=== PATIENT | male | born 1960 | race Caucasian/White ===

== ENCOUNTER 2017-11-05 04:31 | Inpatient (IN) | payer OTHER ==
[2017-11-05] MEDS ORDERED: NS 1000 ML 1,000 ML ONE ×2 (04:50→06:22)
[2017-11-05] MEDS ORDERED: ZOFRAN INJ 4 MG VIAL ONE (04:51)
[2017-11-05] MEDS ORDERED: PEPCID 20 MG IV PREMIX* 20 MG/50 ML BAG IV ONE ×2 (05:07→05:11)
[2017-11-05] MEDS ORDERED: ZOFRAN INJ 4 MG VIAL IVP ONE ×2 (05:09)
[2017-11-05] MEDS ORDERED: NS 1000 ML 1,000 ML IV ONE ×2 (05:09)
--- NOTE | 2017-11-05 05:11 | DR.GENAD ---
HPI - PCP Primary Care Physician: myke - HPI Comment HPI Comment: PATIENT IS HAVING DECREASE URINE OUTPUT. NO FEVER. - Complaint/Symptoms Chief Complaint Doctors Comments: ABDOMINAL PAIN WITH NAUSEA AND DIARRHEA TIMES ONE DAY. Chief Complaint:: abdominal pain - Nurses notes reviewed Nurses Notes Review: Yes - Source History Provided: Patient - Mode of Arrival Mode of Arrival: Ambulatory - Timing Onset of Chief Complaint: 11/04/17 Came on: Suddenly - Duration Duration: Constant Duration: Days - Severity Severity: Moderate PMH - PMH Past Medical History: Yes Past Medical History: Arthritis, Diabetes, Gout, Hypertension, Kidney Stones Past Surgical History: Yes Surgical History: Ortho Surgery - Family History History of Family Medical Conditions: Yes Family Medical History: Diabetes Mellitus, Cancer, [place], Coronary Artery Disease, Hypertension - Social History Does patient currently use any type of tobacco product: No Have you used tobacco products in the last 12 months: No Type of Tobacco Use: None Does any household member use tobacco: No Alcohol Use: None Do you use any recreational Drugs:: No Lives With: Spouse Lives Where: Home - infectious screening In the last 2 months have you had wt loss of >10#?: NO Have you had fever, night sweats or hemotysis?: No Have you traveled outside the country in the last 6 months?: No Isolation: Standard ROS - Review of Systems Constitutional: Weakness, Fatigue, Loss of Appetite. negative: Chills, Diaphoresis, Fever Eyes: No Symptoms Reported. negative: Eye Pain, Discharge ENTM: No Symptoms Reported. negative: Ear Pain, Nose Discharge, Nose Congestion , Throat Swelling Respiratoy: Short of Breath. negative: Productive Cough, Non-Productive Cough, Wheezing, Hemoptysis Cardiovascular: No Symptoms Reported. negative: Chest Pain, Edema Gastrointestinal/Abdominal: Abdominal Pain, Diarrhea, Nausea Genitourinary: Other (DECREASE URINE OUTPUT.). negative: Dysuria, Frequency, Hematuria Neurological: Weakness, Dizziness Musculoskeletal: Muscle Pain Integumentary: Dryness (6) Hematologic/Lymphatic: No Symptoms Reported Endocrine: No Symptoms Reported All Other Systems: Reviewed and Negative PE - Vital Signs Vitals: Temperature 97.8 F Pulse Rate [Right Brachial] 100 Pulse Rate 122 Respiratory Rate 18 Blood Pressure [Right Arm] 129/77 Blood Pressure 115/75 O2 Sat by Pulse Oximetry 95 - General Limitations: No Limitations General Appearance: Alert - Head Head Exam: Normal Inspection - Eyes Eye exam: Normal Appearance - ENT ENT Exam: Normal External Ear Exam External Ear Exam: Normal External Inspection TM/Canal Exam: Bilateral Normal Nose Exam: Normal Nose Exam Mouth Exam: Normal Inspection Throat Exam: Normal Inspection - Neck Neck Exam: Trachea Midline. negative: Tenderness, Meningismus, Lymphadenopathy - Chest Chest Inspection: Symmetric Chest Wall Rise - Respiratory Respiratory Exam: Normal Lung Sounds Bilat Respiratory Exam: Bilateral Rhonchi, Left Rhonchi, Right Rhonchi, Lower Rhonchi - Cardiovascular Cardiovascular Exam: Regular Rate, Normal Rhythm, Normal Heart Sounds - Abdominal Exam Abdominal Exam: Normal Bowel Sounds, Soft, Tenderness Abdominal Tenderness: Diffuse, Moderate - Extremities Extremities Exam: Normal Inspection - Back Back Exam: Normal Inspection - Neurologic Neurological Exam: Alert, Oriented X3 - Psychiatric Psychiatric Exam: Anxious - Skin Skin Exam: Erythema MDM - Additional Information Additional Information Obtained From: Family - Differential Diagnosis Differential Diagnosis: ABDOMINAL PAIN, PANCREATITIS, BOWEL OBSTRUCTION, DEHYDRATION Course - Treatment Treatment: SEE ORDERS. - Consultation Consultation Comments: DISCUSS PATIENT WITH DR. HILL. HE WILL ADMIT PATIENT. - Education/Counseling Education/Counseling: Patient, Family, Education Educated On: Diagnosis ROR - Labs Reviewed Result Diagrams: 11/05/17 05:20 11/05/17 05:20 Laboratory: WBC 22.5 X10^3/uL (3.6-10.0) H 11/05/17 05:20 RBC 6.07 X10^6/uL (4.7-6.0) H 11/05/17 05:20 Hgb 18.1 g/dL (13.5-18.0) H 11/05/17 05:20 Hct 53.2 % (42.0-54.0) 11/05/17 05:20 MCV 87.7 fL (80.0-100.0) 11/05/17 05:20 MCH 29.8 pg (27.0-34.0) 11/05/17 05:20 MCHC 34.0 g/dL (33.0-35.0) 11/05/17 05:20 RDW 14.2 % (11.6-16.5) 11/05/17 05:20 Plt Count 276 X10^3/uL (150.0-450.0) 11/05/17 05:20 Plt Count Comment Adequate (ADEQUATE) 11/05/17 05:20 MPV 9.6 fL (7.4-11.0) 11/05/17 05:20 Neut % (Auto) 90.7 % (42.0-75.0) H 11/05/17 05:20 Lymph % (Auto) 3.5 % (21.0-51.0) L 11/05/17 05:20 [place] % (Auto) 5.6 % (0.0-13.0) 11/05/17 05:20 Eos % (Auto) 0.0 % (0.9-2.9) L 11/05/17 05:20 Baso % (Auto) 0.2 % (0.2-1.0) 11/05/17 05:20 Neut # (Auto) 20.4 x10^3/uL (2.2-4.8) H 11/05/17 05:20 Lymph # (Auto) 0.8 X10^3/uL (1.3-2.9) L 11/05/17 05:20 [place] # (Auto) 1.2 x10^3/uL (0.3-0.8) H 11/05/17 05:20 Eos # (Auto) 0.0 x10^3/uL (0.0-0.2) 11/05/17 05:20 Baso # (Auto) 0.0 X10^3/uL (0.0-0.1) 11/05/17 05:20 Absolute Nucleated RBC 0.0 /100WBC 11/05/17 05:20 Total Counted 100 11/05/17 05:20 Neutrophils % (Manual) 81 % (39-76) H 11/05/17 05:20 Band Neutrophils % 13 % (0-10) H 11/05/17 05:20 Lymphocytes % (Manual) 1 % (13-43) L 11/05/17 05:20 Monocytes % (Manual) 5 % (4-9) 11/05/17 05:20 Plt Morphology Comment Normal (NORMAL) 11/05/17 05:20 RBC Morphology Normal (NORMAL) 11/05/17 05:20 Sodium 137 mmol/L (136-145) 11/05/17 05:20 Corrected Sodium 139 mmol/L (136-145) 11/05/17 05:20 Potassium 4.1 mmol/L (3.5-5.1) 11/05/17 05:20 Chloride 100 mmol/L (98-107) 11/05/17 05:20 Carbon Dioxide 24.9 mmol/L (21-32) 11/05/17 05:20 BUN 39 mg/dL (7-18) H 11/05/17 05:20 Creatinine 1.87 mg/dL (0.70-1.30) H 11/05/17 05:20 Est GFR (MDRD) Af Amer 48 (>60) L 11/05/17 05:20 Est GFR (MDRD) Non-Af 40 (>60) L 11/05/17 05:20 Glucose 199 mg/dL (65-99) H 11/05/17 05:20 Calcium 8.2 mg/dL (8.5-10.1) L 11/05/17 05:20 Corrected Calcium TNP 11/05/17 05:20 Total Bilirubin 0.50 mg/dL (0.2-1.0) 11/05/17 05:20 AST 20 Units/L (15-37) 11/05/17 05:20 ALT 32 Units/L (12-78) 11/05/17 05:20 Alkaline Phosphatase 30 Units/L (46-116) L 11/05/17 05:20 Total Protein 7.1 g/dL (6.4-8.2) 11/05/17 05:20 Albumin 3.7 g/dL (3.4-5.0) 11/05/17 05:20 Globulin 3.4 g/dL (2.5-4.5) 11/05/17 05:20 Albumin/Globulin Ratio 1.1 Ratio (1.1-2.1) 11/05/17 05:20 Amylase 1455 Units/L (25-115) H 11/05/17 05:20 Lipase 8201 Units/L (73-393) H 11/05/17 05:20 - XRAY XRAY Interpreted by: Radiologist XRAY Findings: REPORT DISCUSS WITH PATIENT. - Diagnosis Discharge Problem: Dehydration, Bandemia Acute pancreatitis Qualifiers: Pancreatitis type: unspecified pancreatitis type Acute pancreatitis complication: unspecified Qualified Code(s): K85.90 - Acute pancreatitis without necrosis or infection, unspecified Abdominal pain Qualifiers: Abdominal location: generalized Qualified Code(s): R10.84 - Generalized abdominal pain Leukocytosis Qualifiers: Leukocytosis type: bandemia Qualified Code(s): D72.825 - Bandemia - Discharge Plan Disposition: 09 ADMITTED INPATIENT Condition: Stable - Follow ups/Referrals - Instructions
[2017-11-05 05:36] LABS: BASOPHILS % (AUTO) 0.2 % (0.2-1.0); HEMATOCRIT 53.2 % (42.0-54.0); HEMOGLOBIN 18.1 g/dL (13.5-18.0); LYMPHOCYTES # (AUTO) 0.8 X10^3/uL (1.3-2.9); LYMPHOCYTES % (AUTO) 3.5 % (21.0-51.0); MEAN CORPUSCULAR HEMOGLOBIN 29.8 pg (27.0-34.0); MEAN CORPUSCULAR VOLUME 87.7 fL (80.0-100.0); MEAN PLATELET VOLUME 9.6 fL (7.4-11.0); MONOCYTES # (AUTO) 1.2 x10^3/uL (0.3-0.8); MONOCYTES % (AUTO) 5.6 % (0.0-13.0); NEUTROPHILS # (AUTO) 20.4 x10^3/uL (2.2-4.8); NEUTROPHILS % (AUTO) 90.7 % (42.0-75.0); PLATELET COUNT 276 X10^3/uL (150.0-450.0); RED BLOOD COUNT 6.07 X10^6/uL (4.7-6.0); RED CELL DISTRIBUTION WIDTH 14.2 % (11.6-16.5); WHITE BLOOD COUNT 22.5 X10^3/uL (3.6-10.0)
[2017-11-05 05:39] LABS: ALANINE AMINOTRANSFERASE 32 Units/L (12-78); ALBUMIN 3.7 g/dL (3.4-5.0); ALKALINE PHOSPHATASE 30 Units/L (46-116); ASPARTATE AMINO TRANSFERASE 20 Units/L (15-37); BLOOD UREA NITROGEN 39 mg/dL (7-18); CALCIUM 8.2 mg/dL (8.5-10.1); CARBON DIOXIDE 24.9 mmol/L (21-32); CHLORIDE 100 mmol/L (98-107); COR NA(FOR HYPERGLY) 139 mmol/L (136-145); CREATININE 1.87 mg/dL (0.70-1.30); SODIUM 137 mmol/L (136-145); TOTAL PROTEIN 7.1 g/dL (6.4-8.2); eGFR BLACK RACES 48 (>60); eGFR NON BLACK RACES 40 (>60)
[2017-11-05 05:50] LABS: BAND NEUTROPHILS % 13 % (0-10); PLATELET MORPHOLOGY COMMENT NORMAL (NORMAL)
[2017-11-05 06:02] LABS: AMYLASE 1455 Units/L (25-115); LIPASE 8201 Units/L (73-393)
--- NOTE | 2017-11-05 06:02 | CT ---
HISTORY: Abdominal pain, nausea/vomiting/diarrhea. Patient is unable to urinate. Study: CT scan of the abdomen pelvis without IV or oral contrast Comparison: No priors Technique: Axial CT acquisition of the abdomen and pelvis was performed without IV or oral contrast m aterial administration. Coronal and sagittal images are also reviewed. Dose reduction techniques util ized automatic exposure control. Findings: There are very small bilateral pleural effusions. Bibasilar foci of atelectasis or infiltrate are pre sent. Left-sided coronary artery calcifications are present. A small amount of perihepatic and perisp lenic ascites is seen. There is ascitic fluid present within the pericolic gutters bilaterally as wel l as low within the true pelvis. The liver and spleen are normal in size. The gallbladder is unremark able. There is thickening of the pancreatic head with generalized peripancreatic fat reticulation and thickening of the para renal fascia regions bilaterally. A very small amount of fluid is present wit hin the retroperitoneal space adjacent to the the 2nd portion of the duodenum. Findings have the appe arance of active pancreatitis. Adrenal glands are normal. Multiple tiny nonobstructing kidney stones are present bilaterally. Atherosclerotic calcifications are present involving the yu of the abdomi nal aorta without aneurysm formation. Artifacts are present from surgical hardware involving the lowe r lumbar spine. No acute osseous changes are seen. The urinary bladder is well identified and is smal l. There is no evidence of bowel obstruction or perforation. Uncomplicated appearing sigmoid colon di verticulosis is present. No evidence of free intraperitoneal air seen. IMPRESSION: Active appearing pancreatitis with thickening of the pancreatic head and peripancreatic fat reticulat ion and edematous changes. No pancreatic mass or pseudocyst is seen. Small bilateral pleural effusions with bibasilar foci of atelectasis or infiltrate Abdominal ascites as noted above. Nonobstructing tiny bilateral kidney stones. No evidence of renal mass or hydronephrosis is seen. Small urinary bladder. Reported By:
[2017-11-05] MEDS ORDERED: PHENERGAN INJ 25 MG IVP ONE (08:08)
[2017-11-05] MEDS ORDERED: PHENERGAN INJ 25 MG IVP PRN (08:08)
[2017-11-05] MEDS ORDERED: PHENERGAN INJ 25 MG ONE (08:08)
[2017-11-05] MEDS ORDERED: MORPHINE SULFATE INJ 2 MG INJ IVP ONE (08:08)
[2017-11-05] MEDS ORDERED: MORPHINE SULFATE INJ 2 MG INJ IVP PRN (08:08)
[2017-11-05] MEDS ORDERED: ZOFRAN INJ 4 MG VIAL IVP PRN (08:08)
[2017-11-05] MEDS ORDERED: PEPCID 20 MG IV PREMIX* 20 MG/50 ML BAG IV PRN (08:08)
[2017-11-05] MEDS ORDERED: MORPHINE SULFATE INJ 2 MG INJ ONE ×2 (08:09→14:01)
[2017-11-05 09:10] LABS: LACTIC ACID 2.1 mmol/L (0.4-2.0)
[2017-11-05 10:00] VITALS: BMI 32.5
[2017-11-05] MEDS ORDERED: SALINE 3% 15 ML NEB TX ONE (13:27)
[2017-11-05] MEDS: NS 1000 ML 1,000 ML IV SCH ×2 (14:13→21:30)
[2017-11-05 14:24] LABS: BILIRUBIN,URINE NEGATIVE (NEGATIVE); BLOOD/HEMOGLOBIN,URINE 2+ (NEGATIVE); GLUCOSE, URINE NEGATIVE (NEGATIVE); KETONES,URINE 1+ (NEGATIVE); LEUKOCYTE ESTERASE ,URINE 1+ (NEGATIVE); NITRITES,URINE NEGATIVE (NEGATIVE); PROTEIN,URINE 2+ (NEGATIVE); UROBILINOGEN,URINE NORMAL (NORMAL)
[2017-11-05] MEDS ORDERED: DUONEB 0.5 MG/3 MG ONE (14:35)
[2017-11-05 14:39] LABS: AMORPHOUS SEDIMENT,UR 2+ /HPF (NEGATIVE); APPEARANCE,URINE HAZY (CLEAR); BACTERIA,URINE 2+ /HPF (NEGATIVE); COLOR,URINE DARK YELLOW (YELLOW); HYALINE CASTS, URINE FEW /LPF (NEGATIVE); SQUAMOUS EPITHELIAL CELL,UR RARE /HPF (NEGATIVE)
[2017-11-05] MEDS: DUONEB 0.5 MG/3 MG NEB SCH ×2 (17:30→21:45)
[2017-11-05] MEDS: DEMEROL INJ IVP PRN (20:21)
[2017-11-05] MEDS ORDERED: GLUCOPHAGE ONE (20:56)
[2017-11-05] MEDS ORDERED: NORVASC TAB 10 MG PO SCH (21:00)
[2017-11-05] MEDS ORDERED: TRICOR TAB 160 MG PO SCH (21:00)
[2017-11-05] MEDS: GLUCOPHAGE PO SCH (21:31)
--- NOTE | 2017-11-05 22:40 | US ---
Ultrasound gallbladder Indication: Abdominal pain and acute pancreatitis. Technique: Dynamic grayscale Doppler imaging through the abdomen focusing on the right upper quadrant . Findings: There is large gallstone seen at the gallbladder neck measuring 2.6 cm. The gallbladder is not particularly dilated in the wall is not thickened measuring 2-3 mm. The common bile duct measures 4 mm. The right kidney measures 11.1 cm. Impression: 1. Gallstone within the gallbladder, without specific evidence of acute cholecystitis. 2. Follow-up with HIDA scan if there is high suspicion for gallbladder dysfunction clinically. Reported By:
[2017-11-06] MEDS: DEMEROL INJ IVP PRN ×3 (00:18→12:20)
[2017-11-06] MEDS: DUONEB 0.5 MG/3 MG NEB SCH ×6 (00:59→21:26)
[2017-11-06] MEDS: NS 1000 ML 1,000 ML IV SCH ×2 (04:33→09:41)
[2017-11-06 07:17] LABS: CALCIUM 6.9 mg/dL (8.5-10.1); CARBON DIOXIDE 20.2 mmol/L (21-32); COR CA(FOR HYPOALB) 7.7 mg/dL (8.5-10.1); CREATININE 2.55 mg/dL (0.70-1.30); TOTAL PROTEIN 6.6 g/dL (6.4-8.2)
[2017-11-06 07:20] LABS: BASOPHILS # (AUTO) 0.1 X10^3/uL (0.0-0.1); BASOPHILS % (AUTO) 0.3 % (0.2-1.0); HEMATOCRIT 45.8 % (42.0-54.0); HEMOGLOBIN 15.8 g/dL (13.5-18.0); LYMPHOCYTES # (AUTO) 0.9 X10^3/uL (1.3-2.9); LYMPHOCYTES % (AUTO) 3.8 % (21.0-51.0); MEAN CORPUSCULAR HEMOGLOBIN 30.1 pg (27.0-34.0); MEAN CORPUSCULAR HGB CONC 34.4 g/dL (33.0-35.0); MEAN CORPUSCULAR VOLUME 87.4 fL (80.0-100.0); MEAN PLATELET VOLUME 9.9 fL (7.4-11.0); MONOCYTES # (AUTO) 1.8 x10^3/uL (0.3-0.8); MONOCYTES % (AUTO) 7.4 % (0.0-13.0); NEUTROPHILS # (AUTO) 21.1 x10^3/uL (2.2-4.8); NEUTROPHILS % (AUTO) 88.5 % (42.0-75.0); PLATELET COUNT 250 X10^3/uL (150.0-450.0); RED BLOOD COUNT 5.24 X10^6/uL (4.7-6.0); RED CELL DISTRIBUTION WIDTH 14.9 % (11.6-16.5); WHITE BLOOD COUNT 23.9 X10^3/uL (3.6-10.0)
[2017-11-06 07:49] LABS: BAND NEUTROPHILS % 9 % (0-10); PLATELET MORPHOLOGY COMMENT NORMAL (NORMAL)
[2017-11-06] MEDS ORDERED: GLUCOPHAGE ONE (07:49)
[2017-11-06] MEDS: GLUCOPHAGE PO SCH (08:34)
[2017-11-06] MEDS ORDERED: ZESTORETIC 20/25 MG PO SCH (09:00)
[2017-11-06] MEDS ORDERED: ZYLOPRIM PO SCH (09:00)
[2017-11-06] MEDS ORDERED: NS 1000 ML 1,000 ML IV ONE ×2 (11:19→22:03)
--- NOTE | 2017-11-06 11:47 | DR.H&P ---
H&P - History & Physical for Day of: H&P Date: 11/05/17 - Chief Complaint Chief Complaint: abdominal pain, nausea, diarrhea - Allergies Allergies/Adverse Reactions: Allergies Allergy/AdvReac Type Severity Reaction Status Date / Time piroxicam [From Feldene] Allergy Verified 11/05/17 04:40 - Past Medical History Past Medical History: Arthritis, Diabetes, Gout, Hypertension, Kidney Stones - Past Surgical History Surgical History: Ortho Surgery, Other - Family History Family Medical History: Diabetes Mellitus, Cancer, [place], Coronary Artery Disease, Hypertension - Social History Does patient currently use any type of tobacco product: No Have you used tobacco products in the last 12 months: No Type of Tobacco Use: None Does any household member use tobacco: No Alcohol Use: Occasionally Drug Use: None - Medications Home Medications: Allopurinol [ZYLOPRIM tab 100 mg *] 1 tab PO DAILY 11/05/17 [History Confirmed 11/05/17] Fenofibrate [TRICOR 160 MG *] 1 tab PO HS 11/05/17 [History Confirmed 11/05/17] Lisinopril/Hydrochlorothiazide [Lisinopril-Hctz 20-25 mg Tab] 1 tab PO DAILY [History Confirmed 11/05/17] - Review of Systems Constitutional: Weakness, Malaise, Other (loss of appetite ) Eyes: No Symptoms Reported ENT: No Symptoms Reported Respiratory: Shortness of Breath Cardiovascular: No Symptoms Reported, Light Headedness Gastrointestinal: See HPI, Nausea, Abdominal Pain, Diarrhea. denies: Constipation, Melena, Hematochezia Genitourinary: Other (decreased urine output ) Musculoskeletal: No Symptoms Reported Skin: No Symptoms Reported Neurological: Weakness - Physical Exam Vital Signs: Temperature 97.4 F Pulse Rate [Right Brachial] 113 Pulse Rate 105 Respiratory Rate 20 Blood Pressure [Right Arm] 127/82 Blood Pressure 115/75 O2 Sat by Pulse Oximetry 89 Oriented: Normal Eyes: Normal Ear: Normal Nose: Normal Throat: Normal Respiratory: Rhonchi Throughout Cardiovascular: Normal : Normal Auscultation: Bowel Sounds: Normal Palpation: Normal Tenderness: Diffuse, Moderate. negative: Rebound, Guarding, Rigidity Skin: Normal Musculoskeletal: Normal Psychiatric: Normal Mood Description: Calm Affect: Normal Speech Pattern: Clear - Assessment/Plan (1) Acute pancreatitis Qualifiers: Pancreatitis type: unspecified pancreatitis type Acute pancreatitis complication: unspecified Qualified Code(s): K85.90 - Acute pancreatitis without necrosis or infection, unspecified Status: Acute
[2017-11-06] MEDS ORDERED: NS 1000 ML 1,000 ML IV SCH (12:00)
[2017-11-06] MEDS ORDERED: CONSULT PHARMACY - ANTIBIOTIC XX SCH (12:00)
[2017-11-06] MEDS ORDERED: DUONEB 0.5 MG/3 MG ONE (12:24)
[2017-11-06 12:35] LABS: BILIRUBIN,URINE NEGATIVE (NEGATIVE); BLOOD/HEMOGLOBIN,URINE 3+ (NEGATIVE); GLUCOSE, URINE NEGATIVE (NEGATIVE); KETONES,URINE NEGATIVE (NEGATIVE); LEUKOCYTE ESTERASE ,URINE 1+ (NEGATIVE); NITRITES,URINE NEGATIVE (NEGATIVE); PROTEIN,URINE 2+ (NEGATIVE); UROBILINOGEN,URINE 2+ (NORMAL)
[2017-11-06 12:38] LABS: APPEARANCE,URINE HAZY (CLEAR); COLOR,URINE YELLOW (YELLOW)
[2017-11-06 12:43] LABS: BACTERIA,URINE NEGATIVE /HPF (NEGATIVE); MUCUS,URINE MODERATE /HPF (NEGATIVE); SQUAMOUS EPITHELIAL CELL,UR NEGATIVE /HPF (NEGATIVE)
[2017-11-06] MEDS ORDERED: LEVAQUIN PREMIX IV 500 MG 500 MG/100 ML BAG IV ONE (13:00)
[2017-11-06] MEDS ORDERED: NS 1000 ML 1,000 ML ONE (13:01)
--- NOTE | 2017-11-06 13:02 | RAD ---
HISTORY: Preop for gallbladder surgery. Study: Portable chest. Comparison: CT abdomen/pelvis dated November 05, 2017. Findings: The trachea is midline. The cardiac silhouette is unremarkable. Low lung volumes. Left basilar atel ectasis versus early infiltrate. No obvious pleural effusion or pneumothorax. The right lung is other younger clear. The bony thorax is unremarkable. IMPRESSION: Left basilar atelectasis versus early infiltrate. Reported By:
[2017-11-06] MEDS ORDERED: NS 1000 ML 1,000 ML with SODIUM BICARBONATE 8.4% INJ ADULT 50 ML IV SCH ×2 (14:18)
[2017-11-06] MEDS ORDERED: FORTAZ or TAZICEF INJ 1 GM in NS 100 ML IV + SPIKE MINIBAG* 100 ML IV SCH (15:00)
--- NOTE | 2017-11-06 15:04 | DR.CONSULT ---
Consult - Consultation for Day of: Date: 11/06/17 - Chief Complaint Chief Complaint: Acute cholecystitis. - Allergies Allergies/Adverse Reactions: Allergies Allergy/AdvReac Type Severity Reaction Status Date / Time piroxicam [From Feldene] Allergy Verified 11/05/17 04:40 - History of Present Illness History of Present Illness: The patient is a 57 year old male who presented to [facility] with abdominal pain. Work-up revealed pancreatitis. An ultrasound was obtained that showed a 2.6 cm gallstone in the gallbladder neck. Surgery was consulted for cholecystectomy. The patient is on antiplatelet therapy but is unsure of his last dose. - Past Medical History Past Medical History: Arthritis, Diabetes, Gout, Hypertension, Kidney Stones - Past Surgical History Surgical History: Ortho Surgery, Other (Lap Jairo fundoplication.) - Family History Family Medical History: Diabetes Mellitus, Cancer, [place], Coronary Artery Disease, Hypertension - Social History Does patient currently use any type of tobacco product: No Have you used tobacco products in the last 12 months: No Type of Tobacco Use: None Does any household member use tobacco: No Alcohol Use: Occasionally Drug Use: None - Medications Home Medications: Allopurinol [ZYLOPRIM tab 100 mg *] 1 tab PO DAILY 11/05/17 [History Confirmed 11/05/17] Fenofibrate [TRICOR 160 MG *] 1 tab PO HS 11/05/17 [History Confirmed 11/05/17] Lisinopril/Hydrochlorothiazide [Lisinopril-Hctz 20-25 mg Tab] 1 tab PO DAILY [History Confirmed 11/05/17] - Review of Systems Constitutional: Weakness Eyes: No Symptoms Reported ENT: No Symptoms Reported Respiratory: Shortness of Breath Cardiovascular: No Symptoms Reported Gastrointestinal: Abdominal Pain Genitourinary: Frequency Musculoskeletal: No Symptoms Reported Skin: No Symptoms Reported Neurological: No Symptoms Reported - Physical Exam Vital Signs: Temperature 99.0 F Pulse Rate [Right Brachial] 105 Pulse Rate 106 Respiratory Rate 22 Blood Pressure [Right Arm] 121/65 Blood Pressure 107/77 O2 Sat by Pulse Oximetry 93 Oriented: Normal Eyes: Normal Respiratory: RLL Diminished, LLL Diminished Cardiovascular: Tachycardia : Normal Palpation: Other (Distended) Tenderness: RUQ Skin: Normal Musculoskeletal: Normal Psychiatric: Normal Mood Description: Calm Affect: Normal Speech Pattern: Clear, Appropriate - Plan Plan: 57 yo male with acute pancreatitis. SIRS response. BUN/Cr elevated. Recommend resucitation in ICU with IVF. Start IV abx - renal dose. Closely monitor respiratory function. May need check bladder pressure if UOP does not improve with fluid challenge. Also, consider checking FENA. Will proceed with lap francisco as soon as feasible. Thank you for this consultation.
[2017-11-06 15:47] LABS: CREATININE 2.57 mg/dL (0.70-1.30)
[2017-11-06] MEDS ORDERED: DEMEROL INJ IVP PRN (17:57)
[2017-11-06] MEDS ORDERED: ZOFRAN INJ 4 MG VIAL IVP PRN (17:57)
[2017-11-06] MEDS ORDERED: PHENERGAN INJ 25 MG IVP PRN (17:57)
[2017-11-06] MEDS: PEPCID 20 MG IV PREMIX* 20 MG/50 ML BAG IV SCH (19:08)
[2017-11-06] MEDS: TRICOR TAB 48 MG PO SCH (20:54)
[2017-11-06] MEDS: NORVASC TAB 10 MG PO SCH (20:55)
[2017-11-06] MEDS ORDERED: TRICOR TAB 160 MG PO SCH (21:00)
[2017-11-06] MEDS: FORTAZ or TAZICEF INJ 1 GM in NS 100 ML IV + SPIKE MINIBAG* 100 ML IV SCH (21:20)
[2017-11-06 22:37] LABS: CREATININE 2.09 mg/dL (0.70-1.30)
[2017-11-06 22:46] LABS: CREATININE,URINE 126.05 mg/dL (40-278); SODIUM,URINE < 50 mmol/L (40-220)
[2017-11-07] MEDS: DUONEB 0.5 MG/3 MG NEB SCH ×2 (01:35→07:00)
[2017-11-07] MEDS: DEMEROL INJ IVP PRN ×3 (02:00→20:51)
[2017-11-07] MEDS: NS 1000 ML 1,000 ML with SODIUM BICARBONATE 8.4% INJ ADULT 50 ML IV SCH ×6 (03:20→15:07)
[2017-11-07 06:40] LABS: BASOPHILS % (AUTO) 0.1 % (0.2-1.0); EOSINOPHILS % (AUTO) 0.2 % (0.9-2.9); HEMATOCRIT 34.9 % (42.0-54.0); LYMPHOCYTES # (AUTO) 0.6 X10^3/uL (1.3-2.9); LYMPHOCYTES % (AUTO) 5.3 % (21.0-51.0); MEAN CORPUSCULAR HEMOGLOBIN 30.2 pg (27.0-34.0); MEAN CORPUSCULAR HGB CONC 34.5 g/dL (33.0-35.0); MEAN CORPUSCULAR VOLUME 87.5 fL (80.0-100.0); MEAN PLATELET VOLUME 9.4 fL (7.4-11.0); MONOCYTES # (AUTO) 1.2 x10^3/uL (0.3-0.8); MONOCYTES % (AUTO) 9.7 % (0.0-13.0); NEUTROPHILS # (AUTO) 10.1 x10^3/uL (2.2-4.8); NEUTROPHILS % (AUTO) 84.7 % (42.0-75.0); PLATELET COUNT 165 X10^3/uL (150.0-450.0); RED BLOOD COUNT 3.98 X10^6/uL (4.7-6.0); RED CELL DISTRIBUTION WIDTH 14.9 % (11.6-16.5)
[2017-11-07 06:57] LABS: ALANINE AMINOTRANSFERASE 21 Units/L (12-78); ALBUMIN 2.5 g/dL (3.4-5.0); ALKALINE PHOSPHATASE 30 Units/L (46-116); AMYLASE 337 Units/L (25-115); ASPARTATE AMINO TRANSFERASE 29 Units/L (15-37); BLOOD UREA NITROGEN 44 mg/dL (7-18); CALCIUM 6.3 mg/dL (8.5-10.1); CARBON DIOXIDE 23.9 mmol/L (21-32); CHLORIDE 102 mmol/L (98-107); COR CA(FOR HYPOALB) 7.5 mg/dL (8.5-10.1); CREATININE 1.66 mg/dL (0.70-1.30); LIPASE 575 Units/L (73-393); SODIUM 137 mmol/L (136-145); TOTAL PROTEIN 5.8 g/dL (6.4-8.2); eGFR BLACK RACES 55 (>60); eGFR NON BLACK RACES 46 (>60)
--- NOTE | 2017-11-07 07:09 | RAD ---
HISTORY: Shortness of breath Study: Single-view chest Comparison: 11/06/2017. Findings: Examination is very expiratory with accentuation of the transverse cardiac diameter and crowding of b ronchovascular markings. The trachea is midline. Left basilar atelectasis, infiltrate or scarring is again seen. Remainder of lung naranjo and pleural spaces are clear. Osseous structures are intact. IMPRESSION: Very expiratory chest. Linear focus of atelectasis, infiltrate or scarring in the left lung base is s table. Reported By:
[2017-11-07] MEDS ORDERED: LEVAQUIN PREMIX IV 250 MG 250 MG/50 ML BAG IV SCH (09:00)
[2017-11-07] MEDS: XOPENEX 1.25 MG/3 ML NEBULE NEB SCH ×4 (09:19→20:35)
[2017-11-07] MEDS: LEVAQUIN PREMIX IV 250 MG 250 MG/50 ML BAG IV SCH (09:59)
[2017-11-07] MEDS: ZESTORETIC 20/25 MG PO SCH (10:00)
[2017-11-07] MEDS: ZYLOPRIM PO SCH (10:00)
[2017-11-07] MEDS: PEPCID 20 MG IV PREMIX* 20 MG/50 ML BAG IV SCH (10:00)
[2017-11-07] MEDS ORDERED: DEMEROL INJ IVP PRN ×3 (13:36→16:00)
--- NOTE | 2017-11-07 19:37 | PCM.PROG ---
Progress Note - Progress Note for Day of Date: 11/06/17 - Subjective Subjective: WAS ADMITTED FOR ACUTE PANCREATITIS. TODAY, HE IS ALERT AND ORIENTED, LYING IN BED ON MORNING ROUNDS. HE CONTINUES WITH COMPLAINTS OF ABDOMINAL PAIN AND NAUSEA. ON EXAMINATION, HE IS SLIGHTLY TACHYCARDIC WITH HR NOTED TO BE 113. BILATERAL LUNGS ARE NOTED WITH RHONCHI THROUGHOUT. ABDOMEN IS ROUND, SOFT, AND NOTED WITH MODERATE, DIFFUSE TENDERNESS. NORMAL BOWEL SOUNDS ARE NOTED IN ALL QUADRANTS. THERE IS NORMAL RANGE OF MOTION NOTED TO ALL EXTREMITIES. HIS VITALS THIS MORNING ARE 97.4-113-20-99%-127/82. LABS WERE OBTAINED THIS MORNING. ABNORMAL LAB VALUES INCLUDE THE FOLLOWING: WBC 23.9, CARBON DIOXIDE 20.2, BUN 53, CREATININE 2.55, GLUCOSE 165, CALCIUM 6.9, ALK PHOS 30, ALBUMIN 3.0, AMYLASE 925, LIPASE 3088. SPUTUM CULTURE AND BLOOD CULTURES ARE PENDING. A CHEST XRAY WAS OBTAINED AND REVEALED LEFT BASILAR ATELECTASIS VERSUS EARLY INFILTRATE. WE OBTAINED A GALLBLADDER ULTRASOUND LAST NIGHT. IT REVEALED GALLSTONE WITHIN THE GALLBLADDER, WITHOUT SPECIFIC EVICENCE OF ACUTE CHOLECYSTITIS. TODAY, WE WILL CONSULT FOR POSSIBLE CHOLECYSTECTOMY. WE WILL START FORTAZ 1GM IV DAILY AND LEVAQUIN 250MG IV DAILY. WE WILL ALSO START RESPIRATORY TREATMENTS AND ADD 1 AMP BICARB TO EACH LITER OF IV FLUIDS. WE WILL CONTINUE TO HOLD PATIENTS PLAVIX. OTHERWISE, WE WILL CONTINUE WITH CURRENT PLAN OF CARE. WE PLAN TO FOLLOW UP WITH AM LABS AND CONTINUE TO MONTIOR PATIENT. - Past Medical Family Social History Past Med/Fam/Surg Hx: No changes since H&P Allergies: Allergies piroxicam [From Feldene] Allergy (Verified 11/05/17 04:40) - Review of Systems ROS: No change since H&P - Vital Signs and I&O's Vital Signs: Temperature 98.6 F Pulse Rate [Right Brachial] 108 Pulse Rate 90 Respiratory Rate 37 Blood Pressure [Right Arm] 128/76 Blood Pressure 107/77 O2 Sat by Pulse Oximetry 90 Intake and Output: Intake & Output 11/05/17 11/06/17 11/07/17 11/08/17 11:59 11:59 11:59 11:59 Intake Total 2928 6190 975 Output Total 400 2150 2000 Balance 2528 4040 -1025 - Physical Exam Oriented: Normal Eyes: Normal Ear: Normal Nose: Normal Throat: Normal Respiratory: Generalized, Rhonchi Cardiovascular: Tachycardia : Normal Auscultation: Bowel Sounds: Normal Palpation: Normal Tenderness: RUQ Skin: Normal Musculoskeletal: Normal Psychiatric: Normal Mood Description: Calm Affect: Normal Speech Pattern: Clear, Appropriate - Laboratory and Diagnostics Result Diagrams: 11/07/17 05:30 11/07/17 05:30 Labs: 11/05/17 13:30 Sputum - Expectorated Sputum Sputum Culture - Final 11/05/17 13:30 Sputum - Expectorated Sputum - Final 11/05/17 08:37 Blood Blood Culture - Preliminary 11/05/17 08:27 Blood Blood Culture - Preliminary Laboratory WBC 12.0 X10^3/uL (3.6-10.0) H D 11/07/17 05:30 RBC 3.98 X10^6/uL (4.7-6.0) L 11/07/17 05:30 Hgb 12.0 g/dL (13.5-18.0) L D 11/07/17 05:30 Hct 34.9 % (42.0-54.0) L 11/07/17 05:30 MCV 87.5 fL (80.0-100.0) 11/07/17 05:30 MCH 30.2 pg (27.0-34.0) 11/07/17 05:30 MCHC 34.5 g/dL (33.0-35.0) 11/07/17 05:30 RDW 14.9 % (11.6-16.5) 11/07/17 05:30 Plt Count 165 X10^3/uL (150.0-450.0) 11/07/17 05:30 Plt Count Comment Adequate (ADEQUATE) 11/06/17 06:03 MPV 9.4 fL (7.4-11.0) 11/07/17 05:30 Neut % (Auto) 84.7 % (42.0-75.0) H 11/07/17 05:30 Lymph % (Auto) 5.3 % (21.0-51.0) L 11/07/17 05:30 [place] % (Auto) 9.7 % (0.0-13.0) 11/07/17 05:30 Eos % (Auto) 0.2 % (0.9-2.9) L 11/07/17 05:30 Baso % (Auto) 0.1 % (0.2-1.0) L 11/07/17 05:30 Neut # (Auto) 10.1 x10^3/uL (2.2-4.8) H 11/07/17 05:30 Lymph # (Auto) 0.6 X10^3/uL (1.3-2.9) L 11/07/17 05:30 [place] # (Auto) 1.2 x10^3/uL (0.3-0.8) H 11/07/17 05:30 Eos # (Auto) 0.0 x10^3/uL (0.0-0.2) 11/07/17 05:30 Baso # (Auto) 0.0 X10^3/uL (0.0-0.1) 11/07/17 05:30 Absolute Nucleated RBC 0.0 /100WBC 11/07/17 05:30 Total Counted 100 11/06/17 06:03 Neutrophils % (Manual) 83 % (39-76) H 11/06/17 06:03 Band Neutrophils % 9 % (0-10) 11/06/17 06:03 Lymphocytes % (Manual) 3 % (13-43) L 11/06/17 06:03 Monocytes % (Manual) 5 % (4-9) 11/06/17 06:03 Plt Morphology Comment Normal (NORMAL) 11/06/17 06:03 RBC Morphology Normal (NORMAL) 11/06/17 06:03 Sodium 137 mmol/L (136-145) 11/07/17 05:30 Corrected Sodium TNP 11/07/17 05:30 Potassium 3.6 mmol/L (3.5-5.1) 11/07/17 05:30 Chloride 102 mmol/L (98-107) 11/07/17 05:30 Carbon Dioxide 23.9 mmol/L (21-32) 11/07/17 05:30 BUN 44 mg/dL (7-18) H 11/07/17 05:30 Creatinine 1.66 mg/dL (0.70-1.30) H 11/07/17 05:30 Est GFR (MDRD) Af Amer 55 (>60) L 11/07/17 05:30 Est GFR (MDRD) Non-Af 46 (>60) L 11/07/17 05:30 Glucose 109 mg/dL (65-99) H 11/07/17 05:30 POC Glucose (mg/dL) 98 mg/dL (65-99) 11/07/17 16:41 Lactic Acid 2.8 mmol/L (0.4-2.0) H 11/06/17 15:04 Calcium 6.3 mg/dL (8.5-10.1) L 11/07/17 05:30 Corrected Calcium 7.5 mg/dL (8.5-10.1) L 11/07/17 05:30 Total Bilirubin 0.70 mg/dL (0.2-1.0) 11/07/17 05:30 AST 29 Units/L (15-37) 11/07/17 05:30 ALT 21 Units/L (12-78) 11/07/17 05:30 Alkaline Phosphatase 30 Units/L (46-116) L 11/07/17 05:30 C-Reactive Protein 162.00 mg/L (0-3.0) H 11/05/17 08:27 Total Protein 5.8 g/dL (6.4-8.2) L 11/07/17 05:30 Albumin 2.5 g/dL (3.4-5.0) L 11/07/17 05:30 Globulin 3.3 g/dL (2.5-4.5) 11/07/17 05:30 Albumin/Globulin Ratio 0.8 Ratio (1.1-2.1) L 11/07/17 05:30 Triglycerides 118 mg/dL (0-150) 11/05/17 08:27 Cholesterol 133 mg/dL (0-200) 11/05/17 08:27 LDL Cholesterol, Calc 87 mg/dL (0-100) 11/05/17 08:27 HDL Cholesterol 22 mg/dL (40-60) L 11/05/17 08:27 Cholesterol/HDL Ratio 6.0 (0.0-5.0) H 11/05/17 08:27 Amylase 337 Units/L (25-115) H 11/07/17 05:30 Lipase 575 Units/L (73-393) H 11/07/17 05:30 Specimen Type Catherized urine 11/06/17 12:18 Urine Color Yellow (YELLOW) 11/06/17 12:18 Urine Appearance Hazy (CLEAR) 11/06/17 12:18 Urine pH 5.0 (5.0 - 8.0) 11/06/17 12:18 Ur Specific [place] 1.025 (1.000-1.030) 11/06/17 12:18 Urine Protein 2+ (NEGATIVE) 11/06/17 12:18 Urine Glucose (UA) Negative (NEGATIVE) 11/06/17 12:18 Urine Ketones Negative (NEGATIVE) 11/06/17 12:18 Urine Occult Blood 3+ (NEGATIVE) 11/06/17 12:18 Urine Nitrite Negative (NEGATIVE) 11/06/17 12:18 Urine Bilirubin Negative (NEGATIVE) 11/06/17 12:18 Urine Urobilinogen 2+ (NORMAL) 11/06/17 12:18 Ur Leukocyte Esterase 1+ (NEGATIVE) 11/06/17 12:18 Urine RBC 3-5 /HPF (NONE SEEN) 11/06/17 12:18 Urine WBC 3-5 /HPF (NONE SEEN) 11/06/17 12:18 Ur Squamous Epith Cells Negative /HPF (NEGATIVE) 11/06/17 12:18 Amorphous Sediment 2+ /HPF (NEGATIVE) 11/05/17 14:10 Urine Bacteria Negative /HPF (NEGATIVE) 11/06/17 12:18 Hyaline Casts Few /LPF (NEGATIVE) 11/05/17 14:10 Urine Mucus Moderate /HPF (NEGATIVE) 11/06/17 12:18 Ur Culture Indicated? No/not indicated 11/06/17 12:18 Ur Random Sodium < 50 mmol/L (40-220) 11/06/17 22:31 Urine Creatinine 126.05 mg/dL (40-278) 11/06/17 22:31 - Plan (1) Acute pancreatitis Status: Acute Qualifiers: Pancreatitis type: unspecified pancreatitis type Acute pancreatitis complication: unspecified Qualified Code(s): K85.90 - Acute pancreatitis without necrosis or infection, unspecified Plan: CONTINUE IV FLUIDS, LEVAQUIN 250MG IV DAILY, FORTAZ 1GM IV DAILY, DEMEROL FOR PAIN CONTROL, ZOFRAN AND PHENERGAN FOR NAUSEA (2) Cholelithiasis Status: Acute Qualifiers: Cholelithiasis location: gallbladder Cholecystitis presence: without cholecystitis Biliary obstruction: without biliary obstruction Qualified Code(s): K80.20 - Calculus of gallbladder without cholecystitis without obstruction Plan: CONSULT GENERAL SURGERY FOR POSSIBLE CHOLECYSTECTOMY (3) Bronchopneumonia Status: Acute Plan: LEVAQUIN IV, FORTAZ IV, RESPIRATORY TREATMENTS, CONTINUE TO MONITOR
[2017-11-07] MEDS: NORVASC TAB 10 MG PO SCH (20:50)
[2017-11-07] MEDS: TRICOR TAB 48 MG PO SCH (20:56)
[2017-11-07] MEDS: FORTAZ or TAZICEF INJ 1 GM in NS 100 ML IV + SPIKE MINIBAG* 100 ML IV SCH (22:15)
[2017-11-08] MEDS: DEMEROL INJ IVP PRN ×5 (01:30→19:15)
[2017-11-08] MEDS: NS 1000 ML 1,000 ML with SODIUM BICARBONATE 8.4% INJ ADULT 50 ML IV SCH ×4 (04:15→06:02)
[2017-11-08 05:27] LABS: BASOPHILS % (AUTO) 0.3 % (0.2-1.0); EOSINOPHILS # (AUTO) 0.1 x10^3/uL (0.0-0.2); EOSINOPHILS % (AUTO) 0.7 % (0.9-2.9); HEMATOCRIT 35.6 % (42.0-54.0); HEMOGLOBIN 12.1 g/dL (13.5-18.0); LYMPHOCYTES # (AUTO) 0.7 X10^3/uL (1.3-2.9); MEAN CORPUSCULAR HEMOGLOBIN 29.4 pg (27.0-34.0); MEAN CORPUSCULAR VOLUME 86.6 fL (80.0-100.0); MEAN PLATELET VOLUME 9.7 fL (7.4-11.0); MONOCYTES # (AUTO) 1.4 x10^3/uL (0.3-0.8); MONOCYTES % (AUTO) 11.2 % (0.0-13.0); NEUTROPHILS # (AUTO) 10.1 x10^3/uL (2.2-4.8); NEUTROPHILS % (AUTO) 81.8 % (42.0-75.0); PLATELET COUNT 207 X10^3/uL (150.0-450.0); RED BLOOD COUNT 4.11 X10^6/uL (4.7-6.0); RED CELL DISTRIBUTION WIDTH 14.2 % (11.6-16.5); WHITE BLOOD COUNT 12.4 X10^3/uL (3.6-10.0)
[2017-11-08 05:51] LABS: ALANINE AMINOTRANSFERASE 21 Units/L (12-78); ALBUMIN 2.6 g/dL (3.4-5.0); ALKALINE PHOSPHATASE 43 Units/L (46-116); AMYLASE 114 Units/L (25-115); ASPARTATE AMINO TRANSFERASE 26 Units/L (15-37); BLOOD UREA NITROGEN 21 mg/dL (7-18); CALCIUM 7.4 mg/dL (8.5-10.1); CHLORIDE 103 mmol/L (98-107); COR CA(FOR HYPOALB) 8.5 mg/dL (8.5-10.1); CREATININE 1.15 mg/dL (0.70-1.30); LIPASE 187 Units/L (73-393); SODIUM 139 mmol/L (136-145); TOTAL PROTEIN 6.7 g/dL (6.4-8.2); eGFR BLACK RACES > 60 (>60); eGFR NON BLACK RACES > 60 (>60)
--- NOTE | 2017-11-08 07:42 | RAD ---
HISTORY: Abdominal pain, pancreatitis Study: KUB Comparison: CT abdomen pelvis 11/05/2017 Findings: The abdominal gas pattern is nonspecific and nonobstructive. No abnormal masses or abnormal calcifica tions are identified. Postsurgical changes are present in the lower lumbar and upper sacral spine. IMPRESSION: Nonspecific, nonobstructive bowel gas pattern Reported By:
--- NOTE | 2017-11-08 07:43 | RAD ---
HISTORY: Shortness of breath Study: Single-view chest Comparison: 11/07/2017 Findings: The level of inspiratory effort is improved compared to the prior study, but the exam is still somewh at expiratory. This is seen to accentuate the transverse cardiac diameter and bronchovascular marking s. Right lung is clear. There is still some atelectasis or infiltrate present in the left lung base. No pleural fluid or pneumothorax is seen. Osseous structures are intact. The heart is probably slight ly enlarged IMPRESSION: Improved level of inspiratory effort. Probable cardiomegaly. Still some atelectasis or infiltrate present in the left lung base. Reported By:
[2017-11-08] MEDS: PEPCID 20 MG IV PREMIX* 20 MG/50 ML BAG IV SCH (08:32)
[2017-11-08] MEDS: LEVAQUIN PREMIX IV 250 MG 250 MG/50 ML BAG IV SCH (08:32)
[2017-11-08] MEDS: ZYLOPRIM PO SCH (08:32)
[2017-11-08] MEDS: ZESTORETIC 20/25 MG PO SCH (08:40)
[2017-11-08] MEDS: XOPENEX 1.25 MG/3 ML NEBULE NEB SCH ×4 (09:35→22:19)
[2017-11-08] MEDS ORDERED: NS 100 ML IV 100 ML IV ONE (13:11)
[2017-11-08] MEDS: D5 NS 1000 ML 1,000 ML IV SCH ×3 (14:30→21:12)
--- NOTE | 2017-11-08 14:35 | CT ---
CT OF THE ABDOMEN AND PELVIS WITH CONTRAST HISTORY: Abdominal pain with nausea vomiting. Abdominal station. Previous pancreatitis. Comparison: 3 days prior demonstrating acute pancreatitis. Technique: Multiple axial images of the abdomen and pelvis were obtained from the lung bases to the pubic symphy sis follow the administration of IV contrast as well as oral contrast. Dose reduction techniques inc luding Automated Exposure Control (AEC) and adjustment of mA and kV were utlized. Findings: The heart is normal in size. There is no pericardial effusion. Worsening of atelectasis at the left l serenity base with trace left pleural effusion. Liver and spleen are normal in size, enhancement characteristics and contour. No focal lesions. The p ortal vein is patent. No ductal dilitation. Gallbladder is present. No calcified gallstones or gallbl adder wall thickening. Again noted is significant peripancreatic inflammation and fluid which is slig htly increased when compared to prior. No definite focal regions of devascularization. Splenic vein a ppears patent. No pseudoaneurysm of the splenic artery. No walled-off fluid collections. Adrenal glan ds are normal. Kidneys enhance symmetrically without hydronephrosis or nephrolithiasis. Simple appea ring bilateral renal cysts. No bowel obstruction or inflammation. Diverticulosis without diverticulitis No abnormal appearing mes enteric or retroperitoneal lymph nodes. Small amount of free fluid in the presacral region. ; The bladder is normal in appearance. Prostate not enlarged. ; No aggressive osseous lesions. IMPRESSION: 1. Interval progression of pancreatitis without evidence of acute complication. 2. Worsening of atelectasis and small left pleural effusion involving the left lung base. Reported By:
[2017-11-08] MEDS ORDERED: LASIX IVP ONE (17:22)
[2017-11-08] MEDS: HEPARIN SODIUM INJ 5000 UNITS SC SCH (21:10)
[2017-11-08] MEDS: NORVASC TAB 10 MG PO SCH (21:10)
[2017-11-08] MEDS: TRICOR TAB 48 MG PO SCH (21:10)
[2017-11-08] MEDS: FORTAZ or TAZICEF INJ 1 GM in NS 100 ML IV + SPIKE MINIBAG* 100 ML IV SCH (21:11)
[2017-11-08] MEDS ORDERED: K-LYTE EFFERVESCENT PO PRN (23:01)
[2017-11-08] MEDS ORDERED: POTASSIUM CHLORIDE LIQ 20 MEQ UDC PO PRN (23:01)
[2017-11-08] MEDS ORDERED: POTASSIUM CHL 60 MEQ/NS 0.45% 500 ML IV PRN (23:01)
[2017-11-08] MEDS ORDERED: POTASSIUM CHL 40 MEQ/NS 0.45% 500 ML IV PRN (23:01)
[2017-11-08] MEDS ORDERED: K-RIDER 10 MEQ/NS 100 ML 10 MEQ/100 ML BAG IV PRN (23:01)
[2017-11-09] MEDS: DEMEROL INJ IVP PRN ×6 (00:07→21:58)
[2017-11-09] MEDS: HEPARIN SODIUM INJ 5000 UNITS SC SCH ×3 (05:13→21:08)
[2017-11-09] MEDS: D5 NS 1000 ML 1,000 ML IV SCH ×4 (05:14→21:07)
[2017-11-09 06:23] LABS: BASOPHILS % (AUTO) 0.4 % (0.2-1.0); EOSINOPHILS # (AUTO) 0.2 x10^3/uL (0.0-0.2); EOSINOPHILS % (AUTO) 1.4 % (0.9-2.9); HEMATOCRIT 33.2 % (42.0-54.0); HEMOGLOBIN 11.4 g/dL (13.5-18.0); LYMPHOCYTES # (AUTO) 0.8 X10^3/uL (1.3-2.9); LYMPHOCYTES % (AUTO) 5.7 % (21.0-51.0); MEAN CORPUSCULAR HEMOGLOBIN 29.4 pg (27.0-34.0); MEAN CORPUSCULAR HGB CONC 34.2 g/dL (33.0-35.0); MEAN PLATELET VOLUME 9.1 fL (7.4-11.0); MONOCYTES # (AUTO) 1.7 x10^3/uL (0.3-0.8); MONOCYTES % (AUTO) 12.8 % (0.0-13.0); NEUTROPHILS # (AUTO) 10.6 x10^3/uL (2.2-4.8); NEUTROPHILS % (AUTO) 79.7 % (42.0-75.0); PLATELET COUNT 218 X10^3/uL (150.0-450.0); RED BLOOD COUNT 3.86 X10^6/uL (4.7-6.0); RED CELL DISTRIBUTION WIDTH 14.5 % (11.6-16.5); WHITE BLOOD COUNT 13.3 X10^3/uL (3.6-10.0)
[2017-11-09 06:43] LABS: ALANINE AMINOTRANSFERASE 26 Units/L (12-78); ALBUMIN 2.2 g/dL (3.4-5.0); ALKALINE PHOSPHATASE 49 Units/L (46-116); AMYLASE 50 Units/L (25-115); ASPARTATE AMINO TRANSFERASE 26 Units/L (15-37); BLOOD UREA NITROGEN 13 mg/dL (7-18); CARBON DIOXIDE 26.3 mmol/L (21-32); CHLORIDE 102 mmol/L (98-107); COR CA(FOR HYPOALB) 9.4 mg/dL (8.5-10.1); COR NA(FOR HYPERGLY) 138 mmol/L (136-145); CREATININE 0.88 mg/dL (0.70-1.30); LIPASE 116 Units/L (73-393); MAGNESIUM 1.7 mg/dL (1.7-2.9); SODIUM 137 mmol/L (136-145); TOTAL PROTEIN 6.4 g/dL (6.4-8.2); eGFR BLACK RACES > 60 (>60); eGFR NON BLACK RACES > 60 (>60)
[2017-11-09 06:49] LABS: BAND NEUTROPHILS % 9 % (0-10); PLATELET MORPHOLOGY COMMENT NORMAL (NORMAL)
--- NOTE | 2017-11-09 07:19 | RAD ---
HISTORY: 57-year-old male with shortness of breath. Study: Frontal view of the chest. Comparison: Chest radiograph 11/08/2017 Findings: The trachea is midline. The cardiac silhouette is stably enlarged with low lung volumes. Unchanged left basilar atelectasis with likely trace effusion and no pneumothorax. Soft tissues are unremarkabl e. Osseous structures are unremarkable. IMPRESSION: 1. Unchanged left basilar atelectasis with likely trace effusion. Correlate clinically for underlyin g infectious process. Reported By:
[2017-11-09] MEDS: ZESTORETIC 20/25 MG PO SCH (08:22)
[2017-11-09] MEDS: PEPCID 20 MG IV PREMIX* 20 MG/50 ML BAG IV SCH (08:22)
[2017-11-09] MEDS: ZYLOPRIM PO SCH (08:22)
[2017-11-09] MEDS: LEVAQUIN PREMIX IV 250 MG 250 MG/50 ML BAG IV SCH (08:22)
[2017-11-09] MEDS: XOPENEX 1.25 MG/3 ML NEBULE NEB SCH ×4 (09:39→22:02)
[2017-11-09] MEDS ORDERED: POTASSIUM CHLORIDE LIQ 20 MEQ UDC PO PRN (19:00)
[2017-11-09] MEDS ORDERED: K-RIDER 10 MEQ/NS 100 ML 10 MEQ/100 ML BAG IV PRN (19:00)
[2017-11-09] MEDS ORDERED: POTASSIUM CHL 60 MEQ/NS 0.45% 500 ML IV PRN (19:00)
[2017-11-09] MEDS ORDERED: MAGNESIUM SULFATE 1 GM/100 mL PREMIX 1 GM/100 ML BAG IV PRN (19:00)
[2017-11-09] MEDS ORDERED: POTASSIUM CHL 40 MEQ/NS 0.45% 500 ML IV PRN (19:00)
[2017-11-09] MEDS ORDERED: K-LYTE EFFERVESCENT PO PRN (19:00)
[2017-11-09] MEDS ORDERED: TYLENOL 325 MG TAB PO PRN (20:24)
[2017-11-09] MEDS: MAGNESIUM SULFATE 1 GM/100 mL PREMIX 1 GM/100 ML BAG IV PRN ×2 (20:35→21:40)
[2017-11-09] MEDS: NORVASC TAB 10 MG PO SCH (21:07)
[2017-11-09] MEDS: MIRALAX POWDER (1 DOSE 17GM) PO SCH (21:07)
[2017-11-09] MEDS: TRICOR TAB 48 MG PO SCH (21:08)
[2017-11-09] MEDS: FORTAZ or TAZICEF INJ 1 GM in NS 100 ML IV + SPIKE MINIBAG* 100 ML IV SCH (21:08)
[2017-11-10] MEDS: DEMEROL INJ IVP PRN ×5 (02:35→22:55)
[2017-11-10] MEDS: D5 NS 1000 ML 1,000 ML IV SCH ×4 (03:11→21:50)
[2017-11-10 05:53] LABS: BASOPHILS % (AUTO) 0.3 % (0.2-1.0); EOSINOPHILS # (AUTO) 0.2 x10^3/uL (0.0-0.2); EOSINOPHILS % (AUTO) 1.3 % (0.9-2.9); HEMATOCRIT 34.5 % (42.0-54.0); HEMOGLOBIN 11.9 g/dL (13.5-18.0); LYMPHOCYTES % (AUTO) 6.8 % (21.0-51.0); MEAN CORPUSCULAR HEMOGLOBIN 29.6 pg (27.0-34.0); MEAN CORPUSCULAR HGB CONC 34.4 g/dL (33.0-35.0); MEAN CORPUSCULAR VOLUME 86.1 fL (80.0-100.0); MEAN PLATELET VOLUME 9.1 fL (7.4-11.0); MONOCYTES # (AUTO) 1.8 x10^3/uL (0.3-0.8); NEUTROPHILS # (AUTO) 12.2 x10^3/uL (2.2-4.8); NEUTROPHILS % (AUTO) 79.6 % (42.0-75.0); PLATELET COUNT 245 X10^3/uL (150.0-450.0); RED BLOOD COUNT 4.01 X10^6/uL (4.7-6.0); RED CELL DISTRIBUTION WIDTH 14.8 % (11.6-16.5); WHITE BLOOD COUNT 15.3 X10^3/uL (3.6-10.0)
[2017-11-10 06:04] LABS: ALANINE AMINOTRANSFERASE 47 Units/L (12-78); ALBUMIN 2.1 g/dL (3.4-5.0); ALKALINE PHOSPHATASE 78 Units/L (46-116); AMYLASE 45 Units/L (25-115); ASPARTATE AMINO TRANSFERASE 46 Units/L (15-37); BLOOD UREA NITROGEN 11 mg/dL (7-18); CALCIUM 8.1 mg/dL (8.5-10.1); CARBON DIOXIDE 28.7 mmol/L (21-32); CHLORIDE 100 mmol/L (98-107); COR CA(FOR HYPOALB) 9.6 mg/dL (8.5-10.1); COR NA(FOR HYPERGLY) 138 mmol/L (136-145); CREATININE 0.94 mg/dL (0.70-1.30); LIPASE 129 Units/L (73-393); MAGNESIUM 1.8 mg/dL (1.7-2.9); SODIUM 137 mmol/L (136-145); TOTAL PROTEIN 6.4 g/dL (6.4-8.2); eGFR BLACK RACES > 60 (>60); eGFR NON BLACK RACES > 60 (>60)
[2017-11-10] MEDS: HEPARIN SODIUM INJ 5000 UNITS SC SCH ×3 (06:20→21:50)
--- NOTE | 2017-11-10 07:37 | RAD ---
HISTORY: 57-year-old male with dehydration and leukocytosis. Study: Frontal view of the chest. Comparison: Chest radiograph 11/09/2017 Findings: The trachea is midline. The cardiac silhouette is stably enlarged with low lung volumes and left bas ilar airspace opacities superimposed upon prominent interstitium. No pneumothorax with likely trace left effusion. Soft tissues are unremarkable. Osseous structures are unremarkable. IMPRESSION: 1. Left basilar airspace opacities and likely trace effusion, correlate clinically for underlying in fectious process. Reported By:
[2017-11-10] MEDS: MIRALAX POWDER (1 DOSE 17GM) PO SCH ×3 (08:49→21:51)
[2017-11-10] MEDS: ZYLOPRIM PO SCH (08:49)
[2017-11-10] MEDS: LEVAQUIN PREMIX IV 250 MG 250 MG/50 ML BAG IV SCH (08:50)
[2017-11-10] MEDS: ZESTORETIC 20/25 MG PO SCH (08:50)
[2017-11-10] MEDS: PEPCID 20 MG IV PREMIX* 20 MG/50 ML BAG IV SCH (08:50)
[2017-11-10] MEDS: XOPENEX 1.25 MG/3 ML NEBULE NEB SCH ×4 (09:17→20:39)
--- NOTE | 2017-11-10 11:07 | PCM.PROG ---
Progress Note - Progress Note for Day of Date: 11/09/17 - Subjective Subjective: Feels better. Thirsty. Minimal ambulation. c/o abdominal distention. (-) BM. Takes Miralax for mild chronic constipation at home. - Past Medical Family Social History Past Med/Fam/Surg Hx: No changes since H&P Allergies: Allergies piroxicam [From Feldene] Allergy (Verified 11/05/17 04:40) - Review of Systems ROS: No change since H&P - Vital Signs and I&O's Vital Signs: Temperature 97 F Pulse Rate [Right Brachial] 102 Pulse Rate 80 Respiratory Rate 16 Blood Pressure [Right Arm] 138/75 Blood Pressure 107/77 O2 Sat by Pulse Oximetry 95 Intake and Output: Intake & Output 11/07/17 11/08/17 11/09/17 11/10/17 11:59 11:59 11:59 11:59 Intake Total 6190 2446 2641 3030 Output Total 2150 4100 5151 2850 Balance 4040 -8834 2517 180 - Physical Exam Oriented: Normal Eyes: Normal Ear: Normal Nose: Normal Throat: Normal Respiratory: Generalized, Rhonchi (Left base - Mild) Cardiovascular: Normal, Tachycardia : Normal Auscultation: Bowel Sounds: Normal, Decreased Palpation: Other (Distended. Tympanic.) Tenderness: RUQ, Epigastric Skin: Normal Musculoskeletal: Normal Psychiatric: Normal Mood Description: Calm Affect: Normal Speech Pattern: Clear, Appropriate - Laboratory and Diagnostics Result Diagrams: 11/10/17 04:35 11/10/17 04:35 Labs: 11/05/17 08:37 Blood Blood Culture - Final 11/05/17 08:27 Blood Blood Culture - Final 11/05/17 13:30 Sputum - Expectorated Sputum Sputum Culture - Final 11/05/17 13:30 Sputum - Expectorated Sputum - Final Laboratory WBC 15.3 X10^3/uL (3.6-10.0) H 11/10/17 04:35 RBC 4.01 X10^6/uL (4.7-6.0) L 11/10/17 04:35 Hgb 11.9 g/dL (13.5-18.0) L 11/10/17 04:35 Hct 34.5 % (42.0-54.0) L 11/10/17 04:35 MCV 86.1 fL (80.0-100.0) 11/10/17 04:35 MCH 29.6 pg (27.0-34.0) 11/10/17 04:35 MCHC 34.4 g/dL (33.0-35.0) 11/10/17 04:35 RDW 14.8 % (11.6-16.5) 11/10/17 04:35 Plt Count 245 X10^3/uL (150.0-450.0) 11/10/17 04:35 Plt Count Comment Adequate (ADEQUATE) 11/09/17 05:39 MPV 9.1 fL (7.4-11.0) 11/10/17 04:35 Neut % (Auto) 79.6 % (42.0-75.0) H 11/10/17 04:35 Lymph % (Auto) 6.8 % (21.0-51.0) L 11/10/17 04:35 [place] % (Auto) 12.0 % (0.0-13.0) 11/10/17 04:35 Eos % (Auto) 1.3 % (0.9-2.9) 11/10/17 04:35 Baso % (Auto) 0.3 % (0.2-1.0) 11/10/17 04:35 Neut # (Auto) 12.2 x10^3/uL (2.2-4.8) H 11/10/17 04:35 Lymph # (Auto) 1.0 X10^3/uL (1.3-2.9) L 11/10/17 04:35 [place] # (Auto) 1.8 x10^3/uL (0.3-0.8) H 11/10/17 04:35 Eos # (Auto) 0.2 x10^3/uL (0.0-0.2) 11/10/17 04:35 Baso # (Auto) 0.0 X10^3/uL (0.0-0.1) 11/10/17 04:35 Absolute Nucleated RBC 0.1 /100WBC 11/10/17 04:35 Total Counted 100 11/09/17 05:39 Neutrophils % (Manual) 64 % (39-76) 11/09/17 05:39 Band Neutrophils % 9 % (0-10) 11/09/17 05:39 Lymphocytes % (Manual) 12 % (13-43) L 11/09/17 05:39 Monocytes % (Manual) 13 % (4-9) H 11/09/17 05:39 Eosinophils % (Manual) 2 % (0-6) 11/09/17 05:39 Plt Morphology Comment Normal (NORMAL) 11/09/17 05:39 RBC Morphology Normal (NORMAL) 11/09/17 05:39 APTT 39.0 SECONDS (22.9-36.5) H 11/09/17 05:39 PTT Comment - 11/09/17 05:39 Sodium 137 mmol/L (136-145) 11/10/17 04:35 Corrected Sodium 138 mmol/L (136-145) 11/10/17 04:35 Potassium 3.0 mmol/L (3.5-5.1) L* 11/10/17 04:35 Chloride 100 mmol/L (98-107) 11/10/17 04:35 Carbon Dioxide 28.7 mmol/L (21-32) 11/10/17 04:35 BUN 11 mg/dL (7-18) 11/10/17 04:35 Creatinine 0.94 mg/dL (0.70-1.30) 11/10/17 04:35 Est GFR (MDRD) Af Amer > 60 (>60) 11/10/17 04:35 Est GFR (MDRD) Non-Af > 60 (>60) 11/10/17 04:35 Glucose 123 mg/dL (65-99) H 11/10/17 04:35 POC Glucose (mg/dL) 115 mg/dL (65-99) H 11/10/17 05:55 Lactic Acid 2.8 mmol/L (0.4-2.0) H 11/06/17 15:04 Calcium 8.1 mg/dL (8.5-10.1) L 11/10/17 04:35 Corrected Calcium 9.6 mg/dL (8.5-10.1) 11/10/17 04:35 Magnesium 1.8 mg/dL (1.7-2.9) 11/10/17 04:35 Total Bilirubin 1.40 mg/dL (0.2-1.0) H 11/10/17 04:35 AST 46 Units/L (15-37) H 11/10/17 04:35 ALT 47 Units/L (12-78) 11/10/17 04:35 Alkaline Phosphatase 78 Units/L (46-116) 11/10/17 04:35 C-Reactive Protein 162.00 mg/L (0-3.0) H 11/05/17 08:27 Total Protein 6.4 g/dL (6.4-8.2) 11/10/17 04:35 Albumin 2.1 g/dL (3.4-5.0) L 11/10/17 04:35 Globulin 4.3 g/dL (2.5-4.5) 11/10/17 04:35 Albumin/Globulin Ratio 0.5 Ratio (1.1-2.1) L 11/10/17 04:35 Triglycerides 118 mg/dL (0-150) 11/05/17 08:27 Cholesterol 133 mg/dL (0-200) 11/05/17 08:27 LDL Cholesterol, Calc 87 mg/dL (0-100) 11/05/17 08:27 HDL Cholesterol 22 mg/dL (40-60) L 11/05/17 08:27 Cholesterol/HDL Ratio 6.0 (0.0-5.0) H 11/05/17 08:27 Amylase 45 Units/L (25-115) 11/10/17 04:35 Lipase 129 Units/L (73-393) 11/10/17 04:35 Specimen Type Catherized urine 11/06/17 12:18 Urine Color Yellow (YELLOW) 11/06/17 12:18 Urine Appearance Hazy (CLEAR) 11/06/17 12:18 Urine pH 5.0 (5.0 - 8.0) 11/06/17 12:18 Ur Specific [place] 1.025 (1.000-1.030) 11/06/17 12:18 Urine Protein 2+ (NEGATIVE) 11/06/17 12:18 Urine Glucose (UA) Negative (NEGATIVE) 11/06/17 12:18 Urine Ketones Negative (NEGATIVE) 11/06/17 12:18 Urine Occult Blood 3+ (NEGATIVE) 11/06/17 12:18 Urine Nitrite Negative (NEGATIVE) 11/06/17 12:18 Urine Bilirubin Negative (NEGATIVE) 11/06/17 12:18 Urine Urobilinogen 2+ (NORMAL) 11/06/17 12:18 Ur Leukocyte Esterase 1+ (NEGATIVE) 11/06/17 12:18 Urine RBC 3-5 /HPF (NONE SEEN) 11/06/17 12:18 Urine WBC 3-5 /HPF (NONE SEEN) 11/06/17 12:18 Ur Squamous Epith Cells Negative /HPF (NEGATIVE) 11/06/17 12:18 Amorphous Sediment 2+ /HPF (NEGATIVE) 11/05/17 14:10 Urine Bacteria Negative /HPF (NEGATIVE) 11/06/17 12:18 Hyaline Casts Few /LPF (NEGATIVE) 11/05/17 14:10 Urine Mucus Moderate /HPF (NEGATIVE) 11/06/17 12:18 Ur Culture Indicated? No/not indicated 11/06/17 12:18 Ur Random Sodium < 50 mmol/L (40-220) 11/06/17 22:31 Urine Creatinine 126.05 mg/dL (40-278) 11/06/17 22:31 - Plan (1) Cholelithiasis Status: Acute Qualifiers: Cholelithiasis location: gallbladder Cholecystitis presence: with cholecystitis Cholecystitis acuity: acute Biliary obstruction: without biliary obstruction Qualified Code(s): K80.00 - Calculus of gallbladder with acute cholecystitis without obstruction Plan: Continue IV abx. Gallstone in neck of GB on imaging. (+) Willoughby's sign. Stone size alone meets criteria for cholecystectomy. Proceed with lap francisco Saturday. (2) Leukocytosis Status: Acute Qualifiers: Leukocytosis type: bandemia Qualified Code(s): D72.825 - Bandemia Narrative Support Text: Increasing WBC. Recent johnson. (+) Rhonchi. Recommend fever w/u. May need to repeat CT abd with IV contrast to r/o infected pancreatic necrosis. Await further w/u. Plan: Discuss with IM further w/u. Continue IV abx and monitor.
--- NOTE | 2017-11-10 11:15 | PCM.PROG ---
Progress Note - Progress Note for Day of Date: 11/10/17 - Subjective Subjective: Tolerating CL. Voiding with johnson removed. Minimal ambulation. (- ) BM but (+) flatus. Still c/o abdominal distention. - Past Medical Family Social History Past Med/Fam/Surg Hx: No changes since H&P Allergies: Allergies piroxicam [From Feldene] Allergy (Verified 11/05/17 04:40) - Review of Systems ROS: No change since H&P - Vital Signs and I&O's Vital Signs: Temperature 97 F Pulse Rate [Right Brachial] 102 Pulse Rate 80 Respiratory Rate 16 Blood Pressure [Right Arm] 138/75 Blood Pressure 107/77 O2 Sat by Pulse Oximetry 95 Intake and Output: Intake & Output 11/07/17 11/08/17 11/09/17 11/10/17 11:59 11:59 11:59 11:59 Intake Total 61 2446 2641 3030 Output Total 2150 4100 5151 2850 Balance 7020 -3711 -7163 180 - Physical Exam Oriented: Normal Eyes: Normal Ear: Normal Nose: Normal Throat: Normal Respiratory: Generalized, Diminished (Bases ) Cardiovascular: Normal : Normal Auscultation: Bowel Sounds: Decreased Palpation: Other (Distended. Tympanic.) Tenderness: RUQ, Epigastric Skin: Normal Musculoskeletal: Normal Psychiatric: Normal Mood Description: Calm Affect: Normal Speech Pattern: Clear, Appropriate - Laboratory and Diagnostics Result Diagrams: 11/10/17 04:35 11/10/17 04:35 Labs: 11/05/17 08:37 Blood Blood Culture - Final 11/05/17 08:27 Blood Blood Culture - Final 11/05/17 13:30 Sputum - Expectorated Sputum Sputum Culture - Final 11/05/17 13:30 Sputum - Expectorated Sputum - Final Laboratory WBC 15.3 X10^3/uL (3.6-10.0) H 11/10/17 04:35 RBC 4.01 X10^6/uL (4.7-6.0) L 11/10/17 04:35 Hgb 11.9 g/dL (13.5-18.0) L 11/10/17 04:35 Hct 34.5 % (42.0-54.0) L 11/10/17 04:35 MCV 86.1 fL (80.0-100.0) 11/10/17 04:35 MCH 29.6 pg (27.0-34.0) 11/10/17 04:35 MCHC 34.4 g/dL (33.0-35.0) 11/10/17 04:35 RDW 14.8 % (11.6-16.5) 11/10/17 04:35 Plt Count 245 X10^3/uL (150.0-450.0) 11/10/17 04:35 Plt Count Comment Adequate (ADEQUATE) 11/09/17 05:39 MPV 9.1 fL (7.4-11.0) 11/10/17 04:35 Neut % (Auto) 79.6 % (42.0-75.0) H 11/10/17 04:35 Lymph % (Auto) 6.8 % (21.0-51.0) L 11/10/17 04:35 [place] % (Auto) 12.0 % (0.0-13.0) 11/10/17 04:35 Eos % (Auto) 1.3 % (0.9-2.9) 11/10/17 04:35 Baso % (Auto) 0.3 % (0.2-1.0) 11/10/17 04:35 Neut # (Auto) 12.2 x10^3/uL (2.2-4.8) H 11/10/17 04:35 Lymph # (Auto) 1.0 X10^3/uL (1.3-2.9) L 11/10/17 04:35 [place] # (Auto) 1.8 x10^3/uL (0.3-0.8) H 11/10/17 04:35 Eos # (Auto) 0.2 x10^3/uL (0.0-0.2) 11/10/17 04:35 Baso # (Auto) 0.0 X10^3/uL (0.0-0.1) 11/10/17 04:35 Absolute Nucleated RBC 0.1 /100WBC 11/10/17 04:35 Total Counted 100 11/09/17 05:39 Neutrophils % (Manual) 64 % (39-76) 11/09/17 05:39 Band Neutrophils % 9 % (0-10) 11/09/17 05:39 Lymphocytes % (Manual) 12 % (13-43) L 11/09/17 05:39 Monocytes % (Manual) 13 % (4-9) H 11/09/17 05:39 Eosinophils % (Manual) 2 % (0-6) 11/09/17 05:39 Plt Morphology Comment Normal (NORMAL) 11/09/17 05:39 RBC Morphology Normal (NORMAL) 11/09/17 05:39 APTT 39.0 SECONDS (22.9-36.5) H 11/09/17 05:39 PTT Comment - 11/09/17 05:39 Sodium 137 mmol/L (136-145) 11/10/17 04:35 Corrected Sodium 138 mmol/L (136-145) 11/10/17 04:35 Potassium 3.0 mmol/L (3.5-5.1) L* 11/10/17 04:35 Chloride 100 mmol/L (98-107) 11/10/17 04:35 Carbon Dioxide 28.7 mmol/L (21-32) 11/10/17 04:35 BUN 11 mg/dL (7-18) 11/10/17 04:35 Creatinine 0.94 mg/dL (0.70-1.30) 11/10/17 04:35 Est GFR (MDRD) Af Amer > 60 (>60) 11/10/17 04:35 Est GFR (MDRD) Non-Af > 60 (>60) 11/10/17 04:35 Glucose 123 mg/dL (65-99) H 11/10/17 04:35 POC Glucose (mg/dL) 115 mg/dL (65-99) H 11/10/17 05:55 Lactic Acid 2.8 mmol/L (0.4-2.0) H 11/06/17 15:04 Calcium 8.1 mg/dL (8.5-10.1) L 11/10/17 04:35 Corrected Calcium 9.6 mg/dL (8.5-10.1) 11/10/17 04:35 Magnesium 1.8 mg/dL (1.7-2.9) 11/10/17 04:35 Total Bilirubin 1.40 mg/dL (0.2-1.0) H 11/10/17 04:35 AST 46 Units/L (15-37) H 11/10/17 04:35 ALT 47 Units/L (12-78) 11/10/17 04:35 Alkaline Phosphatase 78 Units/L (46-116) 11/10/17 04:35 C-Reactive Protein 162.00 mg/L (0-3.0) H 11/05/17 08:27 Total Protein 6.4 g/dL (6.4-8.2) 11/10/17 04:35 Albumin 2.1 g/dL (3.4-5.0) L 11/10/17 04:35 Globulin 4.3 g/dL (2.5-4.5) 11/10/17 04:35 Albumin/Globulin Ratio 0.5 Ratio (1.1-2.1) L 11/10/17 04:35 Triglycerides 118 mg/dL (0-150) 11/05/17 08:27 Cholesterol 133 mg/dL (0-200) 11/05/17 08:27 LDL Cholesterol, Calc 87 mg/dL (0-100) 11/05/17 08:27 HDL Cholesterol 22 mg/dL (40-60) L 11/05/17 08:27 Cholesterol/HDL Ratio 6.0 (0.0-5.0) H 11/05/17 08:27 Amylase 45 Units/L (25-115) 11/10/17 04:35 Lipase 129 Units/L (73-393) 11/10/17 04:35 Specimen Type Catherized urine 11/06/17 12:18 Urine Color Yellow (YELLOW) 11/06/17 12:18 Urine Appearance Hazy (CLEAR) 11/06/17 12:18 Urine pH 5.0 (5.0 - 8.0) 11/06/17 12:18 Ur Specific [place] 1.025 (1.000-1.030) 11/06/17 12:18 Urine Protein 2+ (NEGATIVE) 11/06/17 12:18 Urine Glucose (UA) Negative (NEGATIVE) 11/06/17 12:18 Urine Ketones Negative (NEGATIVE) 11/06/17 12:18 Urine Occult Blood 3+ (NEGATIVE) 11/06/17 12:18 Urine Nitrite Negative (NEGATIVE) 11/06/17 12:18 Urine Bilirubin Negative (NEGATIVE) 11/06/17 12:18 Urine Urobilinogen 2+ (NORMAL) 11/06/17 12:18 Ur Leukocyte Esterase 1+ (NEGATIVE) 11/06/17 12:18 Urine RBC 3-5 /HPF (NONE SEEN) 11/06/17 12:18 Urine WBC 3-5 /HPF (NONE SEEN) 11/06/17 12:18 Ur Squamous Epith Cells Negative /HPF (NEGATIVE) 11/06/17 12:18 Amorphous Sediment 2+ /HPF (NEGATIVE) 11/05/17 14:10 Urine Bacteria Negative /HPF (NEGATIVE) 11/06/17 12:18 Hyaline Casts Few /LPF (NEGATIVE) 11/05/17 14:10 Urine Mucus Moderate /HPF (NEGATIVE) 11/06/17 12:18 Ur Culture Indicated? No/not indicated 11/06/17 12:18 Ur Random Sodium < 50 mmol/L (40-220) 11/06/17 22:31 Urine Creatinine 126.05 mg/dL (40-278) 11/06/17 22:31 - Plan (1) Cholelithiasis Status: Acute Qualifiers: Cholelithiasis location: gallbladder Cholecystitis presence: with cholecystitis Cholecystitis acuity: acute Biliary obstruction: without biliary obstruction Qualified Code(s): K80.00 - Calculus of gallbladder with acute cholecystitis without obstruction Plan: Continue IV abx. Proceed with lap francisco - early saturday. (2) Leukocytosis Status: Acute Qualifiers: Leukocytosis type: bandemia Qualified Code(s): D72.825 - Bandemia Plan: Await w/u. lap francisco tomorrow.
[2017-11-10] MEDS: TRICOR TAB 48 MG PO SCH (21:51)
[2017-11-10] MEDS: FORTAZ or TAZICEF INJ 1 GM in NS 100 ML IV + SPIKE MINIBAG* 100 ML IV SCH (21:51)
[2017-11-10] MEDS: NORVASC TAB 10 MG PO SCH (21:51)
[2017-11-11] MEDS: DEMEROL INJ IVP PRN ×4 (03:10→20:30)
[2017-11-11] MEDS: D5 NS 1000 ML 1,000 ML IV SCH ×3 (03:32→20:03)
[2017-11-11] MEDS: HEPARIN SODIUM INJ 5000 UNITS SC SCH ×3 (06:07→21:00)
[2017-11-11 06:24] LABS: BASOPHILS # (AUTO) 0.1 X10^3/uL (0.0-0.1); BASOPHILS % (AUTO) 0.3 % (0.2-1.0); EOSINOPHILS # (AUTO) 0.2 x10^3/uL (0.0-0.2); EOSINOPHILS % (AUTO) 1.2 % (0.9-2.9); HEMATOCRIT 34.2 % (42.0-54.0); HEMOGLOBIN 11.7 g/dL (13.5-18.0); LYMPHOCYTES # (AUTO) 1.1 X10^3/uL (1.3-2.9); LYMPHOCYTES % (AUTO) 5.8 % (21.0-51.0); MEAN CORPUSCULAR HEMOGLOBIN 29.2 pg (27.0-34.0); MEAN CORPUSCULAR HGB CONC 34.3 g/dL (33.0-35.0); MEAN PLATELET VOLUME 8.9 fL (7.4-11.0); MONOCYTES # (AUTO) 2.2 x10^3/uL (0.3-0.8); MONOCYTES % (AUTO) 11.2 % (0.0-13.0); NEUTROPHILS # (AUTO) 15.8 x10^3/uL (2.2-4.8); NEUTROPHILS % (AUTO) 81.5 % (42.0-75.0); PLATELET COUNT 254 X10^3/uL (150.0-450.0); RED BLOOD COUNT 4.03 X10^6/uL (4.7-6.0); WHITE BLOOD COUNT 19.3 X10^3/uL (3.6-10.0)
[2017-11-11 06:36] LABS: ALANINE AMINOTRANSFERASE 73 Units/L (12-78); ALBUMIN 1.9 g/dL (3.4-5.0); ALKALINE PHOSPHATASE 96 Units/L (46-116); AMYLASE 42 Units/L (25-115); ASPARTATE AMINO TRANSFERASE 52 Units/L (15-37); BLOOD UREA NITROGEN 8 mg/dL (7-18); CALCIUM 8.2 mg/dL (8.5-10.1); CARBON DIOXIDE 27.1 mmol/L (21-32); CHLORIDE 100 mmol/L (98-107); COR CA(FOR HYPOALB) 9.9 mg/dL (8.5-10.1); COR NA(FOR HYPERGLY) 138 mmol/L (136-145); CREATININE 0.82 mg/dL (0.70-1.30); LIPASE 134 Units/L (73-393); SODIUM 137 mmol/L (136-145); TOTAL PROTEIN 6.4 g/dL (6.4-8.2); eGFR BLACK RACES > 60 (>60); eGFR NON BLACK RACES > 60 (>60)
[2017-11-11 06:53] LABS: BAND NEUTROPHILS % 2 % (0-10); PLATELET MORPHOLOGY COMMENT NORMAL (NORMAL)
--- NOTE | 2017-11-11 07:17 | RAD ---
History: Shortness of breath, comparison 11/10/2017 Study: AP chest Findings: AP erect chest labeled 652 hours shows the cardiac silhouette to be enlarged. The pulmonary vasculature appears within normal limits. There is persistent linear opacity in the left base which may reflect atelectasis or pneumonia. This is stable. No discrete pleural effusion is seen on the AP view today. Impression: 1. Cardiomegaly without CHF. 2. Left basilar linear opacity, atelectasis versus pneumonia. The former is favored. Reported By:
[2017-11-11] MEDS: PEPCID 20 MG IV PREMIX* 20 MG/50 ML BAG IV SCH (08:23)
[2017-11-11] MEDS: LEVAQUIN PREMIX IV 250 MG 250 MG/50 ML BAG IV SCH (08:23)
[2017-11-11] MEDS: XOPENEX 1.25 MG/3 ML NEBULE NEB SCH ×4 (08:25→20:42)
[2017-11-11] MEDS: MIRALAX POWDER (1 DOSE 17GM) PO SCH ×3 (08:26→21:41)
[2017-11-11] MEDS: ZYLOPRIM PO SCH (08:28)
[2017-11-11] MEDS: ZESTORETIC 20/25 MG PO SCH (08:28)
[2017-11-11] MEDS ORDERED: NS 100 ML IV 100 ML IV ONE (08:39)
--- NOTE | 2017-11-11 12:25 | CT ---
History: Follow-up pancreatitis Study: CT abdomen pelvis with contrast Findings: [address] imaging is performed from above the diaphragms to below the pubic symphysis following the oral ingestion of dilute contrast and during the intravenous administration of an unsp ecified volume and concentration of iodinated contrast. Coronal and sagittal reformatted images are s ubmitted as well and comparison made to the study of 11/08/2017. Significant atelectasis/pneumonia in volving the left lower lobe is again demonstrated. There is an extensive inflammatory process surroun ding the entirety of the pancreas and extending to just below the left hemidiaphragm and extending ca udally in the left pericolic gutter and into the left anterior perinephric space. There is caudal ext ension to just below the duodenum as well on the right. This finding is basically unchanged. There ar e tiny bilateral renal calculi. Within the lower pole of the right kidney is a 2.4 cm hypodense lesio n as seen previously which measures 27 Hounsfield units and may have a slightly enhancing nodule post eriorly. A formal renal study following resolution of the pancreatic inflammatory process is recommen ded. Pedicular screws with posterior connecting rods with associated spray artifact extending from th e L3 through S1 levels bilaterally is demonstrated. Impression: Extensive pancreatitis without evidence of pancreatic necrosis is again demonstrated. Significant left lower lobe atelectasis/pneumonia as before. Complex cyst lower pole right kidney. Reported By:
[2017-11-11] MEDS: FORTAZ or TAZICEF INJ 1 GM in NS 100 ML IV + SPIKE MINIBAG* 100 ML IV SCH ×2 (13:42→21:00)
[2017-11-11] MEDS: MUCINEX DM PO SCH ×2 (13:42→21:00)
[2017-11-11] MEDS: TRICOR TAB 48 MG PO SCH (21:00)
[2017-11-11] MEDS: NORVASC TAB 10 MG PO SCH (21:00)
[2017-11-11 21:12] LABS: BILIRUBIN,URINE NEGATIVE (NEGATIVE); BLOOD/HEMOGLOBIN,URINE 2+ (NEGATIVE); GLUCOSE, URINE NEGATIVE (NEGATIVE); KETONES,URINE NEGATIVE (NEGATIVE); LEUKOCYTE ESTERASE ,URINE NEGATIVE (NEGATIVE); NITRITES,URINE NEGATIVE (NEGATIVE); PROTEIN,URINE NEGATIVE (NEGATIVE); UROBILINOGEN,URINE 1+ (NORMAL)
[2017-11-11 21:20] LABS: APPEARANCE,URINE CLEAR (CLEAR); BACTERIA,URINE 1+ /HPF (NEGATIVE); COLOR,URINE YELLOW (YELLOW); SQUAMOUS EPITHELIAL CELL,UR RARE /HPF (NEGATIVE)
[2017-11-12] MEDS: DEMEROL INJ IVP PRN ×4 (00:35→20:45)
[2017-11-12] MEDS: D5 NS 1000 ML 1,000 ML IV SCH ×3 (04:50→19:51)
[2017-11-12 05:27] LABS: BASOPHILS # (AUTO) 0.1 X10^3/uL (0.0-0.1); BASOPHILS % (AUTO) 0.3 % (0.2-1.0); EOSINOPHILS # (AUTO) 0.2 x10^3/uL (0.0-0.2); EOSINOPHILS % (AUTO) 1.2 % (0.9-2.9); HEMATOCRIT 34.8 % (42.0-54.0); LYMPHOCYTES # (AUTO) 1.2 X10^3/uL (1.3-2.9); LYMPHOCYTES % (AUTO) 5.7 % (21.0-51.0); MEAN CORPUSCULAR HEMOGLOBIN 29.3 pg (27.0-34.0); MEAN CORPUSCULAR HGB CONC 34.4 g/dL (33.0-35.0); MEAN CORPUSCULAR VOLUME 85.1 fL (80.0-100.0); MEAN PLATELET VOLUME 8.5 fL (7.4-11.0); MONOCYTES # (AUTO) 1.8 x10^3/uL (0.3-0.8); MONOCYTES % (AUTO) 8.7 % (0.0-13.0); NEUTROPHILS # (AUTO) 17.6 x10^3/uL (2.2-4.8); NEUTROPHILS % (AUTO) 84.1 % (42.0-75.0); PLATELET COUNT 248 X10^3/uL (150.0-450.0); RED BLOOD COUNT 4.09 X10^6/uL (4.7-6.0); RED CELL DISTRIBUTION WIDTH 14.9 % (11.6-16.5); WHITE BLOOD COUNT 20.9 X10^3/uL (3.6-10.0)
[2017-11-12 05:44] LABS: ALANINE AMINOTRANSFERASE 95 Units/L (12-78); ALBUMIN 1.9 g/dL (3.4-5.0); ALKALINE PHOSPHATASE 138 Units/L (46-116); ASPARTATE AMINO TRANSFERASE 66 Units/L (15-37); BLOOD UREA NITROGEN 10 mg/dL (7-18); CALCIUM 8.3 mg/dL (8.5-10.1); CARBON DIOXIDE 28.2 mmol/L (21-32); CHLORIDE 100 mmol/L (98-107); CHOL/HDL RATIO 11.3 (0.0-5.0); CHOLESTEROL 113 mg/dL (0-200); COR NA(FOR HYPERGLY) 137 mmol/L (136-145); HDL CHOLESTEROL 10 mg/dL (40-60); SODIUM 136 mmol/L (136-145); TOTAL PROTEIN 6.4 g/dL (6.4-8.2); TRIGLYCERIDES 239 mg/dL (0-150); eGFR BLACK RACES > 60 (>60); eGFR NON BLACK RACES > 60 (>60)
[2017-11-12] MEDS: FORTAZ or TAZICEF INJ 1 GM in NS 100 ML IV + SPIKE MINIBAG* 100 ML IV SCH ×3 (06:00→21:12)
[2017-11-12] MEDS: HEPARIN SODIUM INJ 5000 UNITS SC SCH ×3 (06:00→21:12)
--- NOTE | 2017-11-12 06:30 | RAD ---
HISTORY: Shortness of breath Study: Chest AP portable Comparison: 11/11/2017 Findings: The heart is enlarged. No congestive heart failure is noted. The lungs are hypo inflated but free of acute infiltrates. There is some subsegmental atelectasis in the left costophrenic angle. A small lef t pleural effusion may be present. The bony thorax is unremarkable. IMPRESSION: Mild cardiomegaly without congestive heart failure Subsegmental atelectasis left lung base Suspect small left pleural effusion Reported By:
[2017-11-12] MEDS ORDERED: PHARMACY CONSULT - TPN XX SCH (07:00)
[2017-11-12] MEDS ORDERED: DULCOLAX SUPPOSITORY 10 MG RECTAL ONE ×2 (08:15→10:00)
[2017-11-12] MEDS: ZYLOPRIM PO SCH (08:36)
[2017-11-12] MEDS: ZESTORETIC 20/25 MG PO SCH (08:36)
[2017-11-12] MEDS: MIRALAX POWDER (1 DOSE 17GM) PO SCH ×2 (08:38→20:05)
[2017-11-12] MEDS: PEPCID 20 MG IV PREMIX* 20 MG/50 ML BAG IV SCH (08:38)
[2017-11-12] MEDS: LEVAQUIN PREMIX IV 750 MG 750 MG/150 ML BAG IV SCH (08:38)
[2017-11-12] MEDS: MUCINEX DM PO SCH ×3 (08:44→21:11)
[2017-11-12] MEDS: K-DUR TAB 20 MEQ PO SCH (08:56)
[2017-11-12] MEDS: XOPENEX 1.25 MG/3 ML NEBULE NEB SCH ×4 (09:07→22:02)
[2017-11-12] MEDS: PROCALAMINE 3 % 1,000 ML IV SCH (09:51)
--- NOTE | 2017-11-12 12:54 | PCM.PROG ---
Progress Note - Progress Note for Day of Date: 11/07/17 - Subjective Subjective: IS BEING TREATED FOR ACUTE PANCREATITIS AND PNEUMONIA. TODAY, HE IS ALERT AND ORIENTED, LYING IN BED ON MORNING ROUNDS. HE CONTINUES WITH COMPLAINTS OF ABDOMINAL PAIN AND NAUSEA. HE ALSO REPORTS INCREASED SHORTNESS OF BREATH. ON EXAMINATION, HEART IS NORMAL IN RATE AND RHYTHM. BILATERAL LUNGS ARE NOTED WITH DIMINISHED LUNG SOUNDS THROUGHOUT. ABDOMEN IS ROUND, SOFT, AND CONTINUES WITH MODERATE, DIFFUSE TENDERNESS. NORMAL BOWEL SOUNDS ARE NOTED IN ALL QUADRANTS. THERE IS NORMAL RANGE OF MOTION NOTED TO ALL EXTREMITIES. HIS VITALS THIS MORNING ARE 98.6-89-22-92% NC-132/66. LABS WERE OBTAINED THIS MORNING. ABNORMAL LAB VALUES INCLUDE THE FOLLOWING: WBC 12.0, RBC 3.98, HGB 12.0, HCT 34.9, BUN 44, CREATININE 1.66, GLUCOSE 109, CALCIUM 6.3, ALK PHOS 30, TOTAL PROTEIN 5.8, ALBUMIN 2.5. BLOOD CULTURES AND SPUTUM CULTURES ARE PENDING. A CHEST XRAY WAS OBTAINED AND REVEALED LEFT BASILAR ATELECTASIS, INFILTRATE, OR SCARRING SEEN. WE OBTAINED A GALLBLADDER ULTRASOUND LAST NIGHT. IT REVEALED GALLSTONE WITHIN THE GALLBLADDER, WITHOUT SPECIFIC EVICENCE OF ACUTE CHOLECYSTITIS. WAS CONSULTED AND PLANS FOR CHOLECYSTECTOMY AFTER PLAVIX HAS BEEN HELD FOR 5 DAYS. TODAY, WE WILL CONTINUE WITH IV ANTIBIOTICS AND RESPIRATORY TREATMENTS WELL BICARB IN IV FLUIDS FOR TREATMENT OF ELEVATED BUN/CREATININE. WE WILL CONTINUE TO HOLD PATIENTS PLAVIX. OTHERWISE, WE WILL CONTINUE WITH CURRENT PLAN OF CARE AND OBTAIN A CT ABD/PELVIS WITHOUT CONTRAST IN THE MORNING. WE PLAN TO FOLLOW UP WITH AM LABS AND CONTINUE TO MONTIOR PATIENT. - Past Medical Family Social History Past Med/Fam/Surg Hx: No changes since H&P Allergies: Allergies piroxicam [From Feldene] Allergy (Verified 11/05/17 04:40) - Review of Systems ROS: No change since H&P - Vital Signs and I&O's Vital Signs: Temperature 96.6 F Pulse Rate [Right Brachial] 80 Pulse Rate 73 Respiratory Rate 14 Blood Pressure [Right Arm] 104/57 Blood Pressure 107/77 O2 Sat by Pulse Oximetry 95 Intake and Output: Intake & Output 11/10/17 11/11/17 11/12/17 11/13/17 11:59 11:59 11:59 11:59 Intake Total 3030 4345 4314 Output Total 2850 1900 Balance 180 2445 4314 - Physical Exam Oriented: Normal Eyes: Normal Ear: Normal Nose: Normal Throat: Normal Respiratory: Generalized, Diminished (Bases ) Cardiovascular: Tachycardia : Normal Auscultation: Bowel Sounds: Normal, Decreased Palpation: Normal Tenderness: RUQ. negative: Rebound, Guarding, Rigidity Skin: Normal Musculoskeletal: Normal Psychiatric: Normal Mood Description: Calm Affect: Normal Speech Pattern: Clear, Appropriate - Laboratory and Diagnostics Result Diagrams: 11/12/17 04:30 11/12/17 04:30 Labs: 11/11/17 21:08 Sputum - Expectorated Sputum - Final 11/09/17 21:55 Blood Blood Culture - Preliminary 11/09/17 21:40 Blood Blood Culture - Preliminary 11/05/17 08:37 Blood Blood Culture - Final 11/05/17 08:27 Blood Blood Culture - Final 11/05/17 13:30 Sputum - Expectorated Sputum Sputum Culture - Final 11/05/17 13:30 Sputum - Expectorated Sputum - Final Laboratory WBC 20.9 X10^3/uL (3.6-10.0) H 11/12/17 04:30 RBC 4.09 X10^6/uL (4.7-6.0) L 11/12/17 04:30 Hgb 12.0 g/dL (13.5-18.0) L 11/12/17 04:30 Hct 34.8 % (42.0-54.0) L 11/12/17 04:30 MCV 85.1 fL (80.0-100.0) 11/12/17 04:30 MCH 29.3 pg (27.0-34.0) 11/12/17 04:30 MCHC 34.4 g/dL (33.0-35.0) 11/12/17 04:30 RDW 14.9 % (11.6-16.5) 11/12/17 04:30 Plt Count 248 X10^3/uL (150.0-450.0) 11/12/17 04:30 Plt Count Comment Adequate (ADEQUATE) 11/11/17 05:30 MPV 8.5 fL (7.4-11.0) 11/12/17 04:30 Neut % (Auto) 84.1 % (42.0-75.0) H 11/12/17 04:30 Lymph % (Auto) 5.7 % (21.0-51.0) L 11/12/17 04:30 [place] % (Auto) 8.7 % (0.0-13.0) 11/12/17 04:30 Eos % (Auto) 1.2 % (0.9-2.9) 11/12/17 04:30 Baso % (Auto) 0.3 % (0.2-1.0) 11/12/17 04:30 Neut # (Auto) 17.6 x10^3/uL (2.2-4.8) H 11/12/17 04:30 Lymph # (Auto) 1.2 X10^3/uL (1.3-2.9) L 11/12/17 04:30 [place] # (Auto) 1.8 x10^3/uL (0.3-0.8) H 11/12/17 04:30 Eos # (Auto) 0.2 x10^3/uL (0.0-0.2) 11/12/17 04:30 Baso # (Auto) 0.1 X10^3/uL (0.0-0.1) 11/12/17 04:30 Absolute Nucleated RBC 0.0 /100WBC 11/12/17 04:30 Total Counted 100 11/11/17 05:30 Neutrophils % (Manual) 80 % (39-76) H 11/11/17 05:30 Band Neutrophils % 2 % (0-10) 11/11/17 05:30 Lymphocytes % (Manual) 6 % (13-43) L 11/11/17 05:30 Monocytes % (Manual) 11 % (4-9) H 11/11/17 05:30 Eosinophils % (Manual) 1 % (0-6) 11/11/17 05:30 Plt Morphology Comment Normal (NORMAL) 11/11/17 05:30 RBC Morphology Normal (NORMAL) 11/11/17 05:30 APTT 39.0 SECONDS (22.9-36.5) H 11/09/17 05:39 PTT Comment - 11/09/17 05:39 Sodium 136 mmol/L (136-145) 11/12/17 04:30 Corrected Sodium 137 mmol/L (136-145) 11/12/17 04:30 Potassium 3.4 mmol/L (3.5-5.1) L 11/12/17 04:30 Chloride 100 mmol/L (98-107) 11/12/17 04:30 Carbon Dioxide 28.2 mmol/L (21-32) 11/12/17 04:30 BUN 10 mg/dL (7-18) 11/12/17 04:30 Creatinine 0.90 mg/dL (0.70-1.30) 11/12/17 04:30 Est GFR (MDRD) Af Amer > 60 (>60) 11/12/17 04:30 Est GFR (MDRD) Non-Af > 60 (>60) 11/12/17 04:30 Glucose 124 mg/dL (65-99) H 11/12/17 04:30 POC Glucose (mg/dL) 109 mg/dL (65-99) H 11/12/17 11:15 Lactic Acid 2.8 mmol/L (0.4-2.0) H 11/06/17 15:04 Calcium 8.3 mg/dL (8.5-10.1) L 11/12/17 04:30 Corrected Calcium 10.0 mg/dL (8.5-10.1) 11/12/17 04:30 Magnesium 1.8 mg/dL (1.7-2.9) 11/10/17 04:35 Total Bilirubin 0.80 mg/dL (0.2-1.0) 11/12/17 04:30 AST 66 Units/L (15-37) H 11/12/17 04:30 ALT 95 Units/L (12-78) H 11/12/17 04:30 Alkaline Phosphatase 138 Units/L (46-116) H 11/12/17 04:30 C-Reactive Protein 162.00 mg/L (0-3.0) H 11/05/17 08:27 Total Protein 6.4 g/dL (6.4-8.2) 11/12/17 04:30 Albumin 1.9 g/dL (3.4-5.0) L 11/12/17 04:30 Globulin 4.5 g/dL (2.5-4.5) 11/12/17 04:30 Albumin/Globulin Ratio 0.4 Ratio (1.1-2.1) L 11/12/17 04:30 Triglycerides 239 mg/dL (0-150) H 11/12/17 04:30 Cholesterol 113 mg/dL (0-200) 11/12/17 04:30 LDL Cholesterol, Calc 55 mg/dL (0-100) 11/12/17 04:30 HDL Cholesterol 10 mg/dL (40-60) L 11/12/17 04:30 Cholesterol/HDL Ratio 11.3 (0.0-5.0) H 11/12/17 04:30 Amylase 42 Units/L (25-115) 11/11/17 05:30 Lipase 134 Units/L (73-393) 11/11/17 05:30 Specimen Type Clean catch urine 11/11/17 21:00 Urine Color Yellow (YELLOW) 11/11/17 21:00 Urine Appearance Clear (CLEAR) 11/11/17 21:00 Urine pH 7.0 (5.0 - 8.0) 11/11/17 21:00 Ur Specific [place] 1.010 (1.000-1.030) 11/11/17 21:00 Urine Protein Negative (NEGATIVE) 11/11/17 21:00 Urine Glucose (UA) Negative (NEGATIVE) 11/11/17 21:00 Urine Ketones Negative (NEGATIVE) 11/11/17 21:00 Urine Occult Blood 2+ (NEGATIVE) 11/11/17 21:00 Urine Nitrite Negative (NEGATIVE) 11/11/17 21:00 Urine Bilirubin Negative (NEGATIVE) 11/11/17 21:00 Urine Urobilinogen 1+ (NORMAL) 11/11/17 21:00 Ur Leukocyte Esterase Negative (NEGATIVE) 11/11/17 21:00 Urine RBC 3-5 /HPF (NONE SEEN) 11/11/17 21:00 Urine WBC 0-2 /HPF (NONE SEEN) 11/11/17 21:00 Ur Squamous Epith Cells Rare /HPF (NEGATIVE) 11/11/17 21:00 Amorphous Sediment 2+ /HPF (NEGATIVE) 11/05/17 14:10 Urine Bacteria 1+ /HPF (NEGATIVE) 11/11/17 21:00 Hyaline Casts Few /LPF (NEGATIVE) 11/05/17 14:10 Urine Mucus Moderate /HPF (NEGATIVE) 11/06/17 12:18 Ur Culture Indicated? No/not indicated 11/11/17 21:00 Ur Random Sodium < 50 mmol/L (40-220) 11/06/17 22:31 Urine Creatinine 126.05 mg/dL (40-278) 11/06/17 22:31 - Plan (1) Acute pancreatitis Status: Acute Qualifiers: Pancreatitis type: unspecified pancreatitis type Acute pancreatitis complication: unspecified Qualified Code(s): K85.90 - Acute pancreatitis without necrosis or infection, unspecified Plan: CONTINUE IV FLUIDS, LEVAQUIN 250MG IV DAILY, FORTAZ 1GM IV DAILY, DEMEROL FOR PAIN CONTROL, ZOFRAN AND PHENERGAN FOR NAUSEA (2) Cholelithiasis Status: Acute Qualifiers: Cholelithiasis location: gallbladder Cholecystitis presence: with cholecystitis Cholecystitis acuity: acute Biliary obstruction: without biliary obstruction Qualified Code(s): K80.00 - Calculus of gallbladder with acute cholecystitis without obstruction Plan: Continue IV abx. Proceed with lap francisco - early afternoon Saturday. (3) Bronchopneumonia Status: Acute Plan: LEVAQUIN IV, FORTAZ IV, RESPIRATORY TREATMENTS, CONTINUE TO MONITOR
[2017-11-12] MEDS ORDERED: NORCURON INJ 10 MG VIAL ONE (13:32)
[2017-11-12] MEDS ORDERED: SUPRANE IN ONE (13:32)
[2017-11-12] MEDS ORDERED: DIPRIVAN VIAL ONE (13:32)
[2017-11-12] MEDS ORDERED: VERSED ONE (13:32)
[2017-11-12] MEDS ORDERED: EPHEDRINE SULFATE INJ ONE (13:32)
[2017-11-12] MEDS ORDERED: NEOSTIGMINE INJ ONE (13:32)
[2017-11-12] MEDS ORDERED: LTA KIT LIDOCAINE 4% ONE (13:32)
[2017-11-12] MEDS ORDERED: NEO-SYNEPHRINE INJ ONE (13:32)
[2017-11-12] MEDS ORDERED: XYLOCAINE 2 % (PLAIN) ONE (13:32)
[2017-11-12] MEDS ORDERED: ROBINUL ONE (13:32)
[2017-11-12] MEDS ORDERED: QUELICIN (OR ANECTINE) ONE (13:32)
--- NOTE | 2017-11-12 14:00 | PCM.PROG ---
Progress Note - Progress Note for Day of Date: 11/08/17 - Subjective Subjective: IS BEING TREATED FOR ACUTE PANCREATITIS AND PNEUMONIA. TODAY, HE IS ALERT AND ORIENTED, LYING IN BED ON MORNING ROUNDS. HE CONTINUES WITH COMPLAINTS OF ABDOMINAL PAIN AND SHORTNESS OF BREATH. PATIENT STATES I FEEL LIKE I AM FEELING UP WITH FLUID. DO I NEED SOME LASIX? ON EXAMINATION, HEART IS NORMAL IN RATE AND RHYTHM. ABDOMEN IS ROUND, SOFT, AND CONTINUES WITH MODERATE, DIFFUSE TENDERNESS. NORMAL BOWEL SOUNDS ARE NOTED IN ALL QUADRANTS. THERE IS NORMAL RANGE OF MOTION NOTED TO ALL EXTREMITIES. HIS VITALS THIS MORNING ARE 97.7-87-21-94%NC-116/57. LABS WERE OBTAINED THIS MORNING. ABNORMAL LAB VALUES INCLUDE THE FOLLOWING: WBC 12.4, RBC 4.11, HGB 12.1, HCT 35.6, BUN 21 , CALCIUM 7.4, ALK PHOS 43, ALBUMIN 2.6. AMYALSE AND LIPASE ARE WITHIN NORMAL LIMITS. BLOOD CULTURES AND SPUTUM CULTURES ARE PENDING. A CHEST XRAY WAS OBTAINED AND REVEALED IMPROVED LEVEL OF INSPIRATORY EFFORT. PROBABLE CARDIOMEGALY, STILL SOME ATELECTASIS OR INFILTRATE PRESENT IN THE LEFT LUNG BASE. AN ABD/PELVIS CT WAS OBTAINED WITH CONTRAST THIS MORNING. IT REVEALED INTERVAL PROGRESSION OF PANCREATITIS WITHOUT EVIDENCE OF ACUTE COMPLICATION. WORSENING OF ATELECTASIS AND SMALL LEFT PLEURAL EFFUSION INVOLVING THE LEFT LUNG BASE. TODAY, WE WILL CONTINUE WITH IV ANTIBIOTICS AND RESPIRATORY TREATMENTS. HIS BLOOD GLUCOSE HAS REMAINED ON THE LOW SIDE OF NORMAL. WE WILL START D5NS AT 125ML/HR TODAY. WE WILL CONTINUE TO HOLD PATIENTS PLAVIX DUE TO PENDING SURGERY. OTHERWISE, WE WILL CONTINUE WITH CURRENT PLAN OF CARE. WE PLAN TO FOLLOW UP WITH AM LABS AND CONTINUE TO MONTIOR PATIENT. - Past Medical Family Social History Past Med/Fam/Surg Hx: No changes since H&P Allergies: Allergies piroxicam [From Feldene] Allergy (Verified 11/05/17 04:40) - Review of Systems ROS: No change since H&P - Vital Signs and I&O's Vital Signs: Temperature 96.6 F Pulse Rate [Right Brachial] 80 Pulse Rate 73 Respiratory Rate 16 Blood Pressure [Right Arm] 117/69 Blood Pressure 107/77 O2 Sat by Pulse Oximetry 95 Intake and Output: Intake & Output 04/01/18 04/02/18 04/03/18 04/04/18 11:59 11:59 11:59 11:59 Intake Total 3030 4345 4314 Output Total 2850 1900 Balance 180 2445 4314 - Physical Exam Oriented: Normal Eyes: Normal Ear: Normal Nose: Normal Throat: Normal Respiratory: Generalized, Diminished (Bases ) Cardiovascular: Tachycardia : Normal Auscultation: Bowel Sounds: Normal Palpation: Normal Tenderness: RUQ. negative: Rebound, Guarding, Rigidity Skin: Normal Musculoskeletal: Normal Psychiatric: Normal Mood Description: Calm Affect: Normal Speech Pattern: Clear, Appropriate - Laboratory and Diagnostics Result Diagrams: 11/12/17 04:30 11/12/17 04:30 Labs: 11/11/17 21:08 Sputum - Expectorated Sputum - Final 11/09/17 21:55 Blood Blood Culture - Preliminary 11/09/17 21:40 Blood Blood Culture - Preliminary 11/05/17 08:37 Blood Blood Culture - Final 11/05/17 08:27 Blood Blood Culture - Final 11/05/17 13:30 Sputum - Expectorated Sputum Sputum Culture - Final 11/05/17 13:30 Sputum - Expectorated Sputum - Final Laboratory WBC 20.9 X10^3/uL (3.6-10.0) H 11/12/17 04:30 RBC 4.09 X10^6/uL (4.7-6.0) L 11/12/17 04:30 Hgb 12.0 g/dL (13.5-18.0) L 11/12/17 04:30 Hct 34.8 % (42.0-54.0) L 11/12/17 04:30 MCV 85.1 fL (80.0-100.0) 11/12/17 04:30 MCH 29.3 pg (27.0-34.0) 11/12/17 04:30 MCHC 34.4 g/dL (33.0-35.0) 11/12/17 04:30 RDW 14.9 % (11.6-16.5) 11/12/17 04:30 Plt Count 248 X10^3/uL (150.0-450.0) 11/12/17 04:30 Plt Count Comment Adequate (ADEQUATE) 11/11/17 05:30 MPV 8.5 fL (7.4-11.0) 11/12/17 04:30 Neut % (Auto) 84.1 % (42.0-75.0) H 11/12/17 04:30 Lymph % (Auto) 5.7 % (21.0-51.0) L 11/12/17 04:30 [place] % (Auto) 8.7 % (0.0-13.0) 11/12/17 04:30 Eos % (Auto) 1.2 % (0.9-2.9) 11/12/17 04:30 Baso % (Auto) 0.3 % (0.2-1.0) 11/12/17 04:30 Neut # (Auto) 17.6 x10^3/uL (2.2-4.8) H 11/12/17 04:30 Lymph # (Auto) 1.2 X10^3/uL (1.3-2.9) L 11/12/17 04:30 [place] # (Auto) 1.8 x10^3/uL (0.3-0.8) H 11/12/17 04:30 Eos # (Auto) 0.2 x10^3/uL (0.0-0.2) 11/12/17 04:30 Baso # (Auto) 0.1 X10^3/uL (0.0-0.1) 11/12/17 04:30 Absolute Nucleated RBC 0.0 /100WBC 11/12/17 04:30 Total Counted 100 11/11/17 05:30 Neutrophils % (Manual) 80 % (39-76) H 11/11/17 05:30 Band Neutrophils % 2 % (0-10) 11/11/17 05:30 Lymphocytes % (Manual) 6 % (13-43) L 11/11/17 05:30 Monocytes % (Manual) 11 % (4-9) H 11/11/17 05:30 Eosinophils % (Manual) 1 % (0-6) 11/11/17 05:30 Plt Morphology Comment Normal (NORMAL) 11/11/17 05:30 RBC Morphology Normal (NORMAL) 11/11/17 05:30 APTT 39.0 SECONDS (22.9-36.5) H 11/09/17 05:39 PTT Comment - 11/09/17 05:39 Sodium 136 mmol/L (136-145) 11/12/17 04:30 Corrected Sodium 137 mmol/L (136-145) 11/12/17 04:30 Potassium 3.4 mmol/L (3.5-5.1) L 11/12/17 04:30 Chloride 100 mmol/L (98-107) 11/12/17 04:30 Carbon Dioxide 28.2 mmol/L (21-32) 11/12/17 04:30 BUN 10 mg/dL (7-18) 11/12/17 04:30 Creatinine 0.90 mg/dL (0.70-1.30) 11/12/17 04:30 Est GFR (MDRD) Af Amer > 60 (>60) 11/12/17 04:30 Est GFR (MDRD) Non-Af > 60 (>60) 11/12/17 04:30 Glucose 124 mg/dL (65-99) H 11/12/17 04:30 POC Glucose (mg/dL) 109 mg/dL (65-99) H 11/12/17 11:15 Lactic Acid 2.8 mmol/L (0.4-2.0) H 11/06/17 15:04 Calcium 8.3 mg/dL (8.5-10.1) L 11/12/17 04:30 Corrected Calcium 10.0 mg/dL (8.5-10.1) 11/12/17 04:30 Magnesium 1.8 mg/dL (1.7-2.9) 11/10/17 04:35 Total Bilirubin 0.80 mg/dL (0.2-1.0) 11/12/17 04:30 AST 66 Units/L (15-37) H 11/12/17 04:30 ALT 95 Units/L (12-78) H 11/12/17 04:30 Alkaline Phosphatase 138 Units/L (46-116) H 11/12/17 04:30 C-Reactive Protein 162.00 mg/L (0-3.0) H 11/05/17 08:27 Total Protein 6.4 g/dL (6.4-8.2) 11/12/17 04:30 Albumin 1.9 g/dL (3.4-5.0) L 11/12/17 04:30 Globulin 4.5 g/dL (2.5-4.5) 11/12/17 04:30 Albumin/Globulin Ratio 0.4 Ratio (1.1-2.1) L 11/12/17 04:30 Triglycerides 239 mg/dL (0-150) H 11/12/17 04:30 Cholesterol 113 mg/dL (0-200) 11/12/17 04:30 LDL Cholesterol, Calc 55 mg/dL (0-100) 11/12/17 04:30 HDL Cholesterol 10 mg/dL (40-60) L 11/12/17 04:30 Cholesterol/HDL Ratio 11.3 (0.0-5.0) H 11/12/17 04:30 Amylase 42 Units/L (25-115) 11/11/17 05:30 Lipase 134 Units/L (73-393) 11/11/17 05:30 Specimen Type Clean catch urine 11/11/17 21:00 Urine Color Yellow (YELLOW) 11/11/17 21:00 Urine Appearance Clear (CLEAR) 11/11/17 21:00 Urine pH 7.0 (5.0 - 8.0) 11/11/17 21:00 Ur Specific [place] 1.010 (1.000-1.030) 11/11/17 21:00 Urine Protein Negative (NEGATIVE) 11/11/17 21:00 Urine Glucose (UA) Negative (NEGATIVE) 11/11/17 21:00 Urine Ketones Negative (NEGATIVE) 11/11/17 21:00 Urine Occult Blood 2+ (NEGATIVE) 11/11/17 21:00 Urine Nitrite Negative (NEGATIVE) 11/11/17 21:00 Urine Bilirubin Negative (NEGATIVE) 11/11/17 21:00 Urine Urobilinogen 1+ (NORMAL) 11/11/17 21:00 Ur Leukocyte Esterase Negative (NEGATIVE) 11/11/17 21:00 Urine RBC 3-5 /HPF (NONE SEEN) 11/11/17 21:00 Urine WBC 0-2 /HPF (NONE SEEN) 11/11/17 21:00 Ur Squamous Epith Cells Rare /HPF (NEGATIVE) 11/11/17 21:00 Amorphous Sediment 2+ /HPF (NEGATIVE) 11/05/17 14:10 Urine Bacteria 1+ /HPF (NEGATIVE) 11/11/17 21:00 Hyaline Casts Few /LPF (NEGATIVE) 11/05/17 14:10 Urine Mucus Moderate /HPF (NEGATIVE) 11/06/17 12:18 Ur Culture Indicated? No/not indicated 11/11/17 21:00 Ur Random Sodium < 50 mmol/L (40-220) 11/06/17 22:31 Urine Creatinine 126.05 mg/dL (40-278) 11/06/17 22:31 - Plan (1) Acute pancreatitis Status: Acute Qualifiers: Pancreatitis type: unspecified pancreatitis type Acute pancreatitis complication: unspecified Qualified Code(s): K85.90 - Acute pancreatitis without necrosis or infection, unspecified Plan: CONTINUE IV FLUIDS, LEVAQUIN 250MG IV DAILY, FORTAZ 1GM IV DAILY, DEMEROL FOR PAIN CONTROL, ZOFRAN AND PHENERGAN FOR NAUSEA (2) Cholelithiasis Status: Acute Qualifiers: Cholelithiasis location: gallbladder Cholecystitis presence: with cholecystitis Cholecystitis acuity: acute Biliary obstruction: without biliary obstruction Qualified Code(s): K80.00 - Calculus of gallbladder with acute cholecystitis without obstruction Plan: Continue IV abx. Proceed with lap francisco - early afternoon Saturday. (3) Bronchopneumonia Status: Acute Plan: LEVAQUIN IV, FORTAZ IV, RESPIRATORY TREATMENTS, CONTINUE TO MONITOR (4) Hypertension Status: Acute Qualifiers: Hypertension type: essential hypertension Qualified Code(s): I10 - Essential (primary) hypertension Plan: CONTINUE NORVASC, CONTINUE ZESTORETIC, CONTINUE TO MONITOR
--- NOTE | 2017-11-12 14:44 | PCM.PROG ---
Progress Note - Progress Note for Day of Date: 11/11/17 - Subjective Subjective: IS BEING TREATED FOR ACUTE PANCREATITIS AND PNEUMONIA. TODAY, HE IS ALERT AND ORIENTED, LYING IN BED ON MORNING ROUNDS. HE CONTINUES WITH COMPLAINTS OF ABDOMINAL PAIN AND SHORTNESS OF BREATH, HOWEVER, HE REPORTS IMPROVEMENT SINCE YESTERDAY. ON EXAMINATION, HEART IS NORMAL IN RATE AND RHYTHM. ABDOMEN IS ROUND, SOFT, AND CONTINUES WITH MODERATE, DIFFUSE TENDERNESS. NORMAL BOWEL SOUNDS ARE NOTED IN ALL QUADRANTS. THERE IS NORMAL RANGE OF MOTION NOTED TO ALL EXTREMITIES. HIS VITALS THIS MORNING ARE 99.1-80-19 -98%-133/79. LABS WERE OBTAINED THIS MORNING. ABNORMAL LAB VALUES INCLUDE THE FOLLOWING: WBC 19.3, RBC 4.03, HGB 11.7, HCT 34.2, POTASSIUM 3.2, GLUCOSE 122, CALCIUM 8.2, AST 52, ALBUMIN 1.9. AMYALSE AND LIPASE ARE WITHIN NORMAL LIMITS. BLOOD CULTURES AND SPUTUM CULTURES REPORT NO GROWTH. REPEAT BLOOD CULTURES ARE PENDING DUE TO AN ELEVATED TEMPERATURE OVER THE WEEKEND. A CHEST XRAY WAS OBTAINED AND REVEALED IMPROVED LEVEL OF INSPIRATORY EFFORT. CARDIOMEGALY WITHOUT CONGESTIVE HEART FAILURE. LEFT BASILAR LINEAR OPACITY, ATELECTASIS VERSUS PNEUMONIA. AN ABDOMEN/PELVIS CT WAS REPEATED TODAY. IT REPORTED EXTENSIVE PANCREATITIS WITHOUT EVIDENCE OF PANCREATIC NECROSIS AGAIN DEMONSTRATED. SIGNIFICANT LEFT LOWER LOBE ATELECTASIS/PEUMONIA BEFORE. COMPLEX CYST LOWER POLE RIGHT KIDNEY. TODAY, WE WILL CONTINUE WITH IV ANTIBIOTICS AND RESPIRATORY TREATMENTS. WILL CONTINUE TO HOLD PATIENTS PLAVIX DUE TO PENDING SURGERY. WILL SEE PATIENT TODAY AND MAKE A CALL TO WHETHER TO PROCEED WITH SURGERY OR NOT. WE WILL INCREASE FORTAZ TO 1GM IV Q8H AND LEVAQUIN TO 750MG IV DAILY. WE WILL ALSO ADD MUCINEX DM Q12H. OTHERWISE, WE WILL CONTINUE WITH CURRENT PLAN OF CARE. WE PLAN TO FOLLOW UP WITH AM LABS AND CONTINUE TO MONTIOR PATIENT. - Past Medical Family Social History Past Med/Fam/Surg Hx: No changes since H&P Allergies: Allergies piroxicam [From Feldene] Allergy (Verified 11/05/17 04:40) - Review of Systems ROS: No change since H&P - Vital Signs and I&O's Vital Signs: Temperature 96.6 F Pulse Rate [Right Brachial] 80 Pulse Rate 73 Respiratory Rate 16 Blood Pressure [Right Arm] 117/69 Blood Pressure 107/77 O2 Sat by Pulse Oximetry 95 Intake and Output: Intake & Output 11/10/17 11/11/17 11/12/17 11/13/17 11:59 11:59 11:59 11:59 Intake Total 3030 4345 4314 Output Total 2850 1900 Balance 180 2445 4314 - Physical Exam Oriented: Normal Eyes: Normal Ear: Normal Nose: Normal Throat: Normal Respiratory: Generalized, Diminished (Bases ) Cardiovascular: Tachycardia : Normal Auscultation: Bowel Sounds: Normal Palpation: Normal Tenderness: RUQ. negative: Rebound, Guarding, Rigidity Skin: Normal Musculoskeletal: Normal Psychiatric: Normal Mood Description: Calm Affect: Normal Speech Pattern: Clear, Appropriate - Laboratory and Diagnostics Result Diagrams: 11/12/17 04:30 11/12/17 04:30 Labs: 11/11/17 21:08 Sputum - Expectorated Sputum - Final 11/09/17 21:55 Blood Blood Culture - Preliminary 11/09/17 21:40 Blood Blood Culture - Preliminary 11/05/17 08:37 Blood Blood Culture - Final 11/05/17 08:27 Blood Blood Culture - Final 11/05/17 13:30 Sputum - Expectorated Sputum Sputum Culture - Final 11/05/17 13:30 Sputum - Expectorated Sputum - Final Laboratory WBC 20.9 X10^3/uL (3.6-10.0) H 11/12/17 04:30 RBC 4.09 X10^6/uL (4.7-6.0) L 11/12/17 04:30 Hgb 12.0 g/dL (13.5-18.0) L 11/12/17 04:30 Hct 34.8 % (42.0-54.0) L 11/12/17 04:30 MCV 85.1 fL (80.0-100.0) 11/12/17 04:30 MCH 29.3 pg (27.0-34.0) 11/12/17 04:30 MCHC 34.4 g/dL (33.0-35.0) 11/12/17 04:30 RDW 14.9 % (11.6-16.5) 11/12/17 04:30 Plt Count 248 X10^3/uL (150.0-450.0) 11/12/17 04:30 Plt Count Comment Adequate (ADEQUATE) 11/11/17 05:30 MPV 8.5 fL (7.4-11.0) 11/12/17 04:30 Neut % (Auto) 84.1 % (42.0-75.0) H 11/12/17 04:30 Lymph % (Auto) 5.7 % (21.0-51.0) L 11/12/17 04:30 [place] % (Auto) 8.7 % (0.0-13.0) 11/12/17 04:30 Eos % (Auto) 1.2 % (0.9-2.9) 11/12/17 04:30 Baso % (Auto) 0.3 % (0.2-1.0) 11/12/17 04:30 Neut # (Auto) 17.6 x10^3/uL (2.2-4.8) H 11/12/17 04:30 Lymph # (Auto) 1.2 X10^3/uL (1.3-2.9) L 11/12/17 04:30 [place] # (Auto) 1.8 x10^3/uL (0.3-0.8) H 11/12/17 04:30 Eos # (Auto) 0.2 x10^3/uL (0.0-0.2) 11/12/17 04:30 Baso # (Auto) 0.1 X10^3/uL (0.0-0.1) 11/12/17 04:30 Absolute Nucleated RBC 0.0 /100WBC 11/12/17 04:30 Total Counted 100 11/11/17 05:30 Neutrophils % (Manual) 80 % (39-76) H 11/11/17 05:30 Band Neutrophils % 2 % (0-10) 11/11/17 05:30 Lymphocytes % (Manual) 6 % (13-43) L 11/11/17 05:30 Monocytes % (Manual) 11 % (4-9) H 11/11/17 05:30 Eosinophils % (Manual) 1 % (0-6) 11/11/17 05:30 Plt Morphology Comment Normal (NORMAL) 11/11/17 05:30 RBC Morphology Normal (NORMAL) 11/11/17 05:30 APTT 39.0 SECONDS (22.9-36.5) H 11/09/17 05:39 PTT Comment - 11/09/17 05:39 Sodium 136 mmol/L (136-145) 11/12/17 04:30 Corrected Sodium 137 mmol/L (136-145) 11/12/17 04:30 Potassium 3.4 mmol/L (3.5-5.1) L 11/12/17 04:30 Chloride 100 mmol/L (98-107) 11/12/17 04:30 Carbon Dioxide 28.2 mmol/L (21-32) 11/12/17 04:30 BUN 10 mg/dL (7-18) 11/12/17 04:30 Creatinine 0.90 mg/dL (0.70-1.30) 11/12/17 04:30 Est GFR (MDRD) Af Amer > 60 (>60) 11/12/17 04:30 Est GFR (MDRD) Non-Af > 60 (>60) 11/12/17 04:30 Glucose 124 mg/dL (65-99) H 11/12/17 04:30 POC Glucose (mg/dL) 109 mg/dL (65-99) H 11/12/17 11:15 Lactic Acid 2.8 mmol/L (0.4-2.0) H 11/06/17 15:04 Calcium 8.3 mg/dL (8.5-10.1) L 11/12/17 04:30 Corrected Calcium 10.0 mg/dL (8.5-10.1) 11/12/17 04:30 Magnesium 1.8 mg/dL (1.7-2.9) 11/10/17 04:35 Total Bilirubin 0.80 mg/dL (0.2-1.0) 11/12/17 04:30 AST 66 Units/L (15-37) H 11/12/17 04:30 ALT 95 Units/L (12-78) H 11/12/17 04:30 Alkaline Phosphatase 138 Units/L (46-116) H 11/12/17 04:30 C-Reactive Protein 162.00 mg/L (0-3.0) H 11/05/17 08:27 Total Protein 6.4 g/dL (6.4-8.2) 11/12/17 04:30 Albumin 1.9 g/dL (3.4-5.0) L 11/12/17 04:30 Globulin 4.5 g/dL (2.5-4.5) 11/12/17 04:30 Albumin/Globulin Ratio 0.4 Ratio (1.1-2.1) L 11/12/17 04:30 Triglycerides 239 mg/dL (0-150) H 11/12/17 04:30 Cholesterol 113 mg/dL (0-200) 11/12/17 04:30 LDL Cholesterol, Calc 55 mg/dL (0-100) 11/12/17 04:30 HDL Cholesterol 10 mg/dL (40-60) L 11/12/17 04:30 Cholesterol/HDL Ratio 11.3 (0.0-5.0) H 11/12/17 04:30 Amylase 42 Units/L (25-115) 11/11/17 05:30 Lipase 134 Units/L (73-393) 11/11/17 05:30 Specimen Type Clean catch urine 11/11/17 21:00 Urine Color Yellow (YELLOW) 11/11/17 21:00 Urine Appearance Clear (CLEAR) 11/11/17 21:00 Urine pH 7.0 (5.0 - 8.0) 11/11/17 21:00 Ur Specific [place] 1.010 (1.000-1.030) 11/11/17 21:00 Urine Protein Negative (NEGATIVE) 11/11/17 21:00 Urine Glucose (UA) Negative (NEGATIVE) 11/11/17 21:00 Urine Ketones Negative (NEGATIVE) 11/11/17 21:00 Urine Occult Blood 2+ (NEGATIVE) 11/11/17 21:00 Urine Nitrite Negative (NEGATIVE) 11/11/17 21:00 Urine Bilirubin Negative (NEGATIVE) 11/11/17 21:00 Urine Urobilinogen 1+ (NORMAL) 11/11/17 21:00 Ur Leukocyte Esterase Negative (NEGATIVE) 11/11/17 21:00 Urine RBC 3-5 /HPF (NONE SEEN) 11/11/17 21:00 Urine WBC 0-2 /HPF (NONE SEEN) 11/11/17 21:00 Ur Squamous Epith Cells Rare /HPF (NEGATIVE) 11/11/17 21:00 Amorphous Sediment 2+ /HPF (NEGATIVE) 11/05/17 14:10 Urine Bacteria 1+ /HPF (NEGATIVE) 11/11/17 21:00 Hyaline Casts Few /LPF (NEGATIVE) 11/05/17 14:10 Urine Mucus Moderate /HPF (NEGATIVE) 11/06/17 12:18 Ur Culture Indicated? No/not indicated 11/11/17 21:00 Ur Random Sodium < 50 mmol/L (40-220) 11/06/17 22:31 Urine Creatinine 126.05 mg/dL (40-278) 11/06/17 22:31 - Plan (1) Acute pancreatitis Status: Acute Qualifiers: Pancreatitis type: unspecified pancreatitis type Acute pancreatitis complication: unspecified Qualified Code(s): K85.90 - Acute pancreatitis without necrosis or infection, unspecified Plan: CONTINUE IV FLUIDS, LEVAQUIN 750MG IV DAILY, FORTAZ 1GM IV Q8H, DEMEROL FOR PAIN CONTROL, ZOFRAN AND PHENERGAN FOR NAUSEA (2) Cholelithiasis Status: Acute Qualifiers: Cholelithiasis location: gallbladder Cholecystitis presence: with cholecystitis Cholecystitis acuity: acute Biliary obstruction: without biliary obstruction Qualified Code(s): K80.00 - Calculus of gallbladder with acute cholecystitis without obstruction Plan: Continue IV abx. Proceed with lap francisco - early afternoon Saturday. (3) Bronchopneumonia Status: Acute Plan: LEVAQUIN IV, FORTAZ IV, RESPIRATORY TREATMENTS, CONTINUE TO MONITOR (4) Hypertension Status: Acute Qualifiers: Hypertension type: essential hypertension Qualified Code(s): I10 - Essential (primary) hypertension Plan: CONTINUE NORVASC, CONTINUE ZESTORETIC, CONTINUE TO MONITOR
[2017-11-12] MEDS ORDERED: LR 1000 ML IV 1,000 ML IV ONE ×2 (14:47→17:38)
--- NOTE | 2017-11-12 15:02 | PCM.PROG ---
Progress Note - Progress Note for Day of Date: 11/12/17 - Subjective Subjective: IS BEING TREATED FOR ACUTE PANCREATITIS AND PNEUMONIA. TODAY, HE IS ALERT AND ORIENTED, LYING IN BED ON MORNING ROUNDS. HE CONTINUES WITH COMPLAINTS OF ABDOMINAL PAIN AND SHORTNESS OF BREATH, HOWEVER, HE REPORTS IMPROVEMENT SINCE YESTERDAY. ON EXAMINATION, HEART IS NORMAL IN RATE AND RHYTHM. ABDOMEN IS ROUND, SOFT, AND CONTINUES WITH MODERATE, DIFFUSE TENDERNESS. NORMAL BOWEL SOUNDS ARE NOTED IN ALL QUADRANTS. THERE IS NORMAL RANGE OF MOTION NOTED TO ALL EXTREMITIES. HIS VITALS THIS MORNING ARE 96.6-75-22 -98%-133/76. LABS WERE OBTAINED THIS MORNING. ABNORMAL LAB VALUES INCLUDE THE FOLLOWING: WBC 20.9, RBC 4.09, HGB 12.0, HCT 34.8, POTASSIUM 3.4, GLUCOSE 124, CALCIUM 8.3, AST 66, ALT 95, ALK PHOS 138, ALBUMIN 1.9, TRIGLYCERIDES 239, HDL 10, CHOLESTEROL/HDL RATIO 11.3. REPEAT BLOOD CULTURES AND SPUTUM CULTURES ARE PENDING. A CHEST XRAY WAS OBTAINED AND REVEALED MILD CARDIOMEGALY WITHOUT CONGESTIVE HEART FAILURE. SUBSEGMENTAL ATELECTASIS LEFT LUNG BASE. SUSPECT SMALL LEFT PLEURAL EFFUSION. HELD OFF ON SURGERY YESTERDAY DUE REPORTS OF INCREASING PNEUMONIA. TODAY, WE WILL CONTINUE WITH IV ANTIBIOTICS AND RESPIRATORY TREATMENTS. WILL CONTINUE TO HOLD PATIENTS PLAVIX DUE TO PENDING SURGERY. OTHERWISE, WE WILL CONTINUE WITH CURRENT PLAN OF CARE. WE PLAN TO FOLLOW UP WITH AM LABS AND CONTINUE TO MONTIOR PATIENT. - Past Medical Family Social History Past Med/Fam/Surg Hx: No changes since H&P Allergies: Allergies piroxicam [From Feldene] Allergy (Verified 11/05/17 04:40) - Review of Systems ROS: No change since H&P - Vital Signs and I&O's Vital Signs: Temperature 98.0 F Pulse Rate [Right Brachial] 79 Pulse Rate 73 Respiratory Rate 24 Blood Pressure [Right Arm] 130/74 Blood Pressure 107/77 O2 Sat by Pulse Oximetry 96 Intake and Output: Intake & Output 11/10/17 11/11/17 11/12/17 11/13/17 11:59 11:59 11:59 11:59 Intake Total 3030 4345 4314 Output Total 2850 1900 Balance 180 2445 4314 - Physical Exam Oriented: Normal Eyes: Normal, Blurred Vision Ear: Normal Nose: Normal Throat: Normal Respiratory: Generalized, Diminished (Bases ) Cardiovascular: Tachycardia : Normal Auscultation: Bowel Sounds: Normal Palpation: Normal Tenderness: RUQ. negative: Rebound, Guarding, Rigidity Skin: Normal Musculoskeletal: Normal Psychiatric: Normal Mood Description: Calm Affect: Normal Speech Pattern: Clear, Appropriate - Laboratory and Diagnostics Result Diagrams: 11/12/17 04:30 11/12/17 04:30 Labs: 11/11/17 21:08 Sputum - Expectorated Sputum - Final 11/09/17 21:55 Blood Blood Culture - Preliminary 11/09/17 21:40 Blood Blood Culture - Preliminary 11/05/17 08:37 Blood Blood Culture - Final 11/05/17 08:27 Blood Blood Culture - Final 11/05/17 13:30 Sputum - Expectorated Sputum Sputum Culture - Final 11/05/17 13:30 Sputum - Expectorated Sputum - Final Laboratory WBC 20.9 X10^3/uL (3.6-10.0) H 11/12/17 04:30 RBC 4.09 X10^6/uL (4.7-6.0) L 11/12/17 04:30 Hgb 12.0 g/dL (13.5-18.0) L 11/12/17 04:30 Hct 34.8 % (42.0-54.0) L 11/12/17 04:30 MCV 85.1 fL (80.0-100.0) 11/12/17 04:30 MCH 29.3 pg (27.0-34.0) 11/12/17 04:30 MCHC 34.4 g/dL (33.0-35.0) 11/12/17 04:30 RDW 14.9 % (11.6-16.5) 11/12/17 04:30 Plt Count 248 X10^3/uL (150.0-450.0) 11/12/17 04:30 Plt Count Comment Adequate (ADEQUATE) 11/11/17 05:30 MPV 8.5 fL (7.4-11.0) 11/12/17 04:30 Neut % (Auto) 84.1 % (42.0-75.0) H 11/12/17 04:30 Lymph % (Auto) 5.7 % (21.0-51.0) L 11/12/17 04:30 [place] % (Auto) 8.7 % (0.0-13.0) 11/12/17 04:30 Eos % (Auto) 1.2 % (0.9-2.9) 11/12/17 04:30 Baso % (Auto) 0.3 % (0.2-1.0) 11/12/17 04:30 Neut # (Auto) 17.6 x10^3/uL (2.2-4.8) H 11/12/17 04:30 Lymph # (Auto) 1.2 X10^3/uL (1.3-2.9) L 11/12/17 04:30 [place] # (Auto) 1.8 x10^3/uL (0.3-0.8) H 11/12/17 04:30 Eos # (Auto) 0.2 x10^3/uL (0.0-0.2) 11/12/17 04:30 Baso # (Auto) 0.1 X10^3/uL (0.0-0.1) 11/12/17 04:30 Absolute Nucleated RBC 0.0 /100WBC 11/12/17 04:30 Total Counted 100 11/11/17 05:30 Neutrophils % (Manual) 80 % (39-76) H 11/11/17 05:30 Band Neutrophils % 2 % (0-10) 11/11/17 05:30 Lymphocytes % (Manual) 6 % (13-43) L 11/11/17 05:30 Monocytes % (Manual) 11 % (4-9) H 11/11/17 05:30 Eosinophils % (Manual) 1 % (0-6) 11/11/17 05:30 Plt Morphology Comment Normal (NORMAL) 11/11/17 05:30 RBC Morphology Normal (NORMAL) 11/11/17 05:30 APTT 39.0 SECONDS (22.9-36.5) H 11/09/17 05:39 PTT Comment - 11/09/17 05:39 Sodium 136 mmol/L (136-145) 11/12/17 04:30 Corrected Sodium 137 mmol/L (136-145) 11/12/17 04:30 Potassium 3.4 mmol/L (3.5-5.1) L 11/12/17 04:30 Chloride 100 mmol/L (98-107) 11/12/17 04:30 Carbon Dioxide 28.2 mmol/L (21-32) 11/12/17 04:30 BUN 10 mg/dL (7-18) 11/12/17 04:30 Creatinine 0.90 mg/dL (0.70-1.30) 11/12/17 04:30 Est GFR (MDRD) Af Amer > 60 (>60) 11/12/17 04:30 Est GFR (MDRD) Non-Af > 60 (>60) 11/12/17 04:30 Glucose 124 mg/dL (65-99) H 11/12/17 04:30 POC Glucose (mg/dL) 109 mg/dL (65-99) H 11/12/17 11:15 Lactic Acid 2.8 mmol/L (0.4-2.0) H 11/06/17 15:04 Calcium 8.3 mg/dL (8.5-10.1) L 11/12/17 04:30 Corrected Calcium 10.0 mg/dL (8.5-10.1) 11/12/17 04:30 Magnesium 1.8 mg/dL (1.7-2.9) 11/10/17 04:35 Total Bilirubin 0.80 mg/dL (0.2-1.0) 11/12/17 04:30 AST 66 Units/L (15-37) H 11/12/17 04:30 ALT 95 Units/L (12-78) H 11/12/17 04:30 Alkaline Phosphatase 138 Units/L (46-116) H 11/12/17 04:30 C-Reactive Protein 162.00 mg/L (0-3.0) H 11/05/17 08:27 Total Protein 6.4 g/dL (6.4-8.2) 11/12/17 04:30 Albumin 1.9 g/dL (3.4-5.0) L 11/12/17 04:30 Globulin 4.5 g/dL (2.5-4.5) 11/12/17 04:30 Albumin/Globulin Ratio 0.4 Ratio (1.1-2.1) L 11/12/17 04:30 Triglycerides 239 mg/dL (0-150) H 11/12/17 04:30 Cholesterol 113 mg/dL (0-200) 11/12/17 04:30 LDL Cholesterol, Calc 55 mg/dL (0-100) 11/12/17 04:30 HDL Cholesterol 10 mg/dL (40-60) L 11/12/17 04:30 Cholesterol/HDL Ratio 11.3 (0.0-5.0) H 11/12/17 04:30 Amylase 42 Units/L (25-115) 11/11/17 05:30 Lipase 134 Units/L (73-393) 11/11/17 05:30 Specimen Type Clean catch urine 11/11/17 21:00 Urine Color Yellow (YELLOW) 11/11/17 21:00 Urine Appearance Clear (CLEAR) 11/11/17 21:00 Urine pH 7.0 (5.0 - 8.0) 11/11/17 21:00 Ur Specific [place] 1.010 (1.000-1.030) 11/11/17 21:00 Urine Protein Negative (NEGATIVE) 11/11/17 21:00 Urine Glucose (UA) Negative (NEGATIVE) 11/11/17 21:00 Urine Ketones Negative (NEGATIVE) 11/11/17 21:00 Urine Occult Blood 2+ (NEGATIVE) 11/11/17 21:00 Urine Nitrite Negative (NEGATIVE) 11/11/17 21:00 Urine Bilirubin Negative (NEGATIVE) 11/11/17 21:00 Urine Urobilinogen 1+ (NORMAL) 11/11/17 21:00 Ur Leukocyte Esterase Negative (NEGATIVE) 11/11/17 21:00 Urine RBC 3-5 /HPF (NONE SEEN) 11/11/17 21:00 Urine WBC 0-2 /HPF (NONE SEEN) 11/11/17 21:00 Ur Squamous Epith Cells Rare /HPF (NEGATIVE) 11/11/17 21:00 Amorphous Sediment 2+ /HPF (NEGATIVE) 11/05/17 14:10 Urine Bacteria 1+ /HPF (NEGATIVE) 11/11/17 21:00 Hyaline Casts Few /LPF (NEGATIVE) 11/05/17 14:10 Urine Mucus Moderate /HPF (NEGATIVE) 11/06/17 12:18 Ur Culture Indicated? No/not indicated 11/11/17 21:00 Ur Random Sodium < 50 mmol/L (40-220) 11/06/17 22:31 Urine Creatinine 126.05 mg/dL (40-278) 11/06/17 22:31 - Plan (1) Acute pancreatitis Status: Acute Qualifiers: Pancreatitis type: unspecified pancreatitis type Acute pancreatitis complication: unspecified Qualified Code(s): K85.90 - Acute pancreatitis without necrosis or infection, unspecified Plan: CONTINUE IV FLUIDS, LEVAQUIN 750MG IV DAILY, FORTAZ 1GM IV Q8H, DEMEROL FOR PAIN CONTROL, ZOFRAN AND PHENERGAN FOR NAUSEA (2) Cholelithiasis Status: Acute Qualifiers: Cholelithiasis location: gallbladder Cholecystitis presence: with cholecystitis Cholecystitis acuity: acute Biliary obstruction: without biliary obstruction Qualified Code(s): K80.00 - Calculus of gallbladder with acute cholecystitis without obstruction Plan: Continue IV abx. Proceed with lap francisco - early saturday. (3) Bronchopneumonia Status: Acute Plan: LEVAQUIN IV, FORTAZ IV, RESPIRATORY TREATMENTS, CONTINUE TO MONITOR (4) Hypertension Status: Acute Qualifiers: Hypertension type: essential hypertension Qualified Code(s): I10 - Essential (primary) hypertension Plan: CONTINUE NORVASC, CONTINUE ZESTORETIC, CONTINUE TO MONITOR
--- NOTE | 2017-11-12 15:02 | VAS ---
History: Chronic confinement to a bed with no prophylactic dx Study: Doppler ultrasound of the deep veins of both lower extremities Comparison: None Findings: The deep veins are examined bilaterally from the common femoral to the popliteal and tibial veins. There is good compression and augmentation and color Doppler flow. Impression: No evidence for deep venous thrombosis in either lower extremity Reported By:
[2017-11-12] MEDS ORDERED: XYLOCAINE 1% and EPINEPHRINE 1:100,000 ONE (16:04)
[2017-11-12] MEDS ORDERED: MARCAINE 0.25% INJ ONE (16:04)
[2017-11-12] MEDS ORDERED: FENTANYL INJ 250 mcg ONE (16:38)
[2017-11-12] MEDS ORDERED: NS IRRIGATION 1000 ML 1,000 ML IR ONE ×3 (17:23→17:56)
[2017-11-12] MEDS ORDERED: ZOFRAN INJ 4 MG VIAL ONE (18:44)
[2017-11-12] MEDS ORDERED: DILAUDID INJ IVP PRN (18:47)
[2017-11-12] MEDS ORDERED: ZOFRAN INJ 4 MG VIAL IVP PRN (18:47)
[2017-11-12] MEDS ORDERED: PHENERGAN INJ 25 MG IVP PRN (18:47)
[2017-11-12] MEDS ORDERED: BENADRYL INJ 50 MG VIAL IVP PRN (18:47)
[2017-11-12] MEDS ORDERED: REGLAN INJ 10 MG VIAL IVP PRN (18:47)
--- NOTE | 2017-11-12 19:07 | OR.GENERIC ---
Post-Op Note Generic - Post-Op Note Operative Report: Date of Operation: November 12, 2017 Pre-Operative Diagnosis: 1. Acute cholecystitis. 2. Cholelithiasis. Post-Operative Diagnosis: 1. Acute cholecystitis. 2. Cholelithiasis. Procedure: Laparoscopic cholecystectomy. Surgeon: Darrick Roe MD. Paper Machine Back Tender: Juan Miguel Jamil CRNA. Specimen: Gallbladder. Estimated blood loss: Minimal. Complications: None. Summary: The patient is a 57 year old male who presented with acute cholecystitis and pancreatitis. After improvement from acute pancreatitis, the patient was offered cholecystectomy. The risk and benefits of the procedure including difficulty with anesthesia, bleeding, infection, conversion to open procedure, bile leak, hernia formation, DVT, as well as PE were discussed with the patient. The patient understood these risks and requested the procedure. On November 12, 2017, the patient was brought to the operative theatre. A time out was performed verifying the patient and procedure. After satisfactory induction of general endotracheal anesthesia, the abdomen was prepped with Chloraprep and draped in the usual sterile fashion. The skin and subcutaneous tissue inferior to the umbilicus was anesthetized using local anesthetic. The skin was incised sharply. A 12 mm trocar was placed though the incision and into the peritoneal cavity using the [place] technique. Carbon dioxide was infiltrated through this trocar to obtain a pneumoperitoneum of 15 mm Hg. A camera was placed through this trocar and swept in all directions. No injury was seen from entering the peritoneal cavity. A site was selected in the subxiphoid location for our 2nd trocar. The skin and fascia was anesthetized using local anesthetic. The skin was incised sharply. A 5 mm trocar was placed into the peritoneal cavity under direct visualization. In a similar manner, two additional 5 mm trocars were placed. The first was placed in the mid-clavicular line approximately 2 fingerbreadths inferior to the left costal margin and a second in the anterior axillary line approximately 2 fingerbreadths inferior to the left costal margin. The patient was placed in reverse Trendelenburg and rotated to the patients left. The liver was adhered to the anterior abdominal. The retroperitoneum demonstrated significant inflammation. Therefore, an angled scope was required to visualize the gallbladder. The gallbladder was grasped at the fundus and elevated cephalad and slightly lateral. The peritoneum on the medial and lateral aspects of the infundibulum of the gallbladder was scored using hook electrocautery. Using blunt dissection, the cystic artery and duct were isolated. The critical view of safety was obtained. Both of these structures were divided between endoclips. The gallbladder was dissected free using hook electrocautery. The gallbladder was placed in an endobag and removed through the umbilical trocar site. This required lengthening the facial incision due to a large gallstone. The trocar and camera were placed back inside the abdomen. Our clips were noted in good position. At this point, the 5 mm trocars were removed under direct visualization. No bleeding was seen. The umbilical trocar was then removed and pneumoperitoneum released. The fascia at the umbilicus was closed using a 0-Vicryl placed in a [id number] configuration. The skin edges at all incisions were re-approximated using inverted, interrupted 4-0 Monocryl sutures. Mastisol and Steri-strips were placed. Sterile dressings were placed. The patient was awakened and taken to the recovery room in stable condition. There were no complications. All counts were correct.
[2017-11-12] MEDS: NORVASC TAB 10 MG PO SCH (21:11)
[2017-11-12] MEDS: TRICOR TAB 48 MG PO SCH (21:12)
[2017-11-13] MEDS: PERCOCET TAB 5/325 MG PO PRN ×3 (04:30→20:34)
[2017-11-13] MEDS: D5 NS 1000 ML 1,000 ML IV SCH ×2 (05:08→16:45)
[2017-11-13 05:29] LABS: BASOPHILS % (AUTO) 0.2 % (0.2-1.0); EOSINOPHILS # (AUTO) 0.2 x10^3/uL (0.0-0.2); EOSINOPHILS % (AUTO) 1.1 % (0.9-2.9); HEMATOCRIT 32.7 % (42.0-54.0); HEMOGLOBIN 11.1 g/dL (13.5-18.0); LYMPHOCYTES # (AUTO) 1.3 X10^3/uL (1.3-2.9); LYMPHOCYTES % (AUTO) 6.6 % (21.0-51.0); MEAN CORPUSCULAR VOLUME 85.2 fL (80.0-100.0); MEAN PLATELET VOLUME 8.4 fL (7.4-11.0); MONOCYTES # (AUTO) 1.4 x10^3/uL (0.3-0.8); MONOCYTES % (AUTO) 7.1 % (0.0-13.0); NEUTROPHILS # (AUTO) 16.6 x10^3/uL (2.2-4.8); PLATELET COUNT 277 X10^3/uL (150.0-450.0); RED BLOOD COUNT 3.84 X10^6/uL (4.7-6.0); RED CELL DISTRIBUTION WIDTH 14.7 % (11.6-16.5); WHITE BLOOD COUNT 19.5 X10^3/uL (3.6-10.0)
[2017-11-13] MEDS: HEPARIN SODIUM INJ 5000 UNITS SC SCH ×2 (05:49→13:11)
[2017-11-13] MEDS: FORTAZ or TAZICEF INJ 1 GM in NS 100 ML IV + SPIKE MINIBAG* 100 ML IV SCH ×3 (05:49→21:51)
[2017-11-13 05:50] LABS: ALANINE AMINOTRANSFERASE 89 Units/L (12-78); ALBUMIN 1.7 g/dL (3.4-5.0); ALKALINE PHOSPHATASE 118 Units/L (46-116); ASPARTATE AMINO TRANSFERASE 62 Units/L (15-37); BLOOD UREA NITROGEN 15 mg/dL (7-18); CALCIUM 8.2 mg/dL (8.5-10.1); CARBON DIOXIDE 26.5 mmol/L (21-32); CHLORIDE 101 mmol/L (98-107); COR NA(FOR HYPERGLY) 139 mmol/L (136-145); CREATININE 0.96 mg/dL (0.70-1.30); MAGNESIUM 1.5 mg/dL (1.7-2.9); SODIUM 138 mmol/L (136-145); TOTAL PROTEIN 5.9 g/dL (6.4-8.2); eGFR BLACK RACES > 60 (>60); eGFR NON BLACK RACES > 60 (>60)
--- NOTE | 2017-11-13 07:18 | RAD ---
HISTORY: Shortness of breath Study: Chest AP portable Comparison: 11/12/2017 Findings: The heart is enlarged. No congestive heart failure is noted. The lungs remain hypo inflated but free of acute alveolar infiltrates. There is minimal subsegmental atelectasis in the left lung base. The b yudi thorax is unremarkable. IMPRESSION: Mild cardiomegaly without congestive heart failure Hypo inflation Minimal subsegmental atelectasis left costophrenic angle Reported By:
[2017-11-13] MEDS: MIRALAX POWDER (1 DOSE 17GM) PO SCH ×2 (08:39→20:14)
[2017-11-13] MEDS: MAGNESIUM SULFATE 1 GM/100 mL PREMIX 1 GM/100 ML BAG IV PRN ×2 (08:40→10:14)
[2017-11-13] MEDS: ZYLOPRIM PO SCH (08:41)
[2017-11-13] MEDS: K-DUR TAB 20 MEQ PO SCH (08:41)
[2017-11-13] MEDS: ZESTORETIC 20/25 MG PO SCH (08:41)
[2017-11-13] MEDS: PEPCID 20 MG IV PREMIX* 20 MG/50 ML BAG IV SCH (08:42)
[2017-11-13] MEDS: LEVAQUIN PREMIX IV 750 MG 750 MG/150 ML BAG IV SCH ×2 (08:42→11:18)
[2017-11-13] MEDS: MUCINEX DM PO SCH ×2 (08:46→20:33)
[2017-11-13] MEDS: XOPENEX 1.25 MG/3 ML NEBULE NEB SCH ×4 (08:48→21:59)
[2017-11-13] MEDS: PROCALAMINE 3 % 1,000 ML IV SCH (10:15)
[2017-11-13] MEDS: INVANZ INJ 1 GM VIAL 1 GM in NS 100 ML IV + SPIKE MINIBAG* 100 ML IV SCH (11:17)
[2017-11-13] MEDS ORDERED: MILK OF MAGNESIA PO ONE (14:00)
--- NOTE | 2017-11-13 14:26 | RAD ---
History: Abdominal pain and distention status post gallbladder surgery Study: KUB Comparison: CT abdomen dated November 11 Findings: There is prominent gas in the stomach and in the transverse colon. There are postsurgical r ods and screws of lower lumbar fusion. Impression: Ileus of stomach and transverse colon secondary to CT demonstrated findings of pancreatit is Reported By:
--- NOTE | 2017-11-13 19:35 | PCM.PROG ---
Progress Note - Progress Note for Day of Date: 11/13/17 - Subjective Subjective: IS BEING TREATED FOR ACUTE PANCREATITIS, PNEUMONIA, AND IS STATUS POST LAP TIARA THAT WAS PERFORMED YESTERDAY. TODAY, HE IS ALERT AND ORIENTED, SITTING UP ON THE SIDE OF THE BED ON MORNING ROUNDS. HE REPORTS IMPROVEMENT IN ABDOMINAL PAIN SINCE YESTERDAY. ON EXAMINATION, HEART IS NORMAL IN RATE AND RHYTHM. ABDOMEN IS ROUND, SOFT, AND CONTINUES WITH MILD, DIFFUSE TENDERNESS. NORMAL BOWEL SOUNDS ARE NOTED IN ALL QUADRANTS. THERE IS NORMAL RANGE OF MOTION NOTED TO ALL EXTREMITIES. HIS VITALS THIS MORNING ARE 97.3-79-16 -90%NC-121/66. LABS WERE OBTAINED THIS MORNING. ABNORMAL LAB VALUES INCLUDE THE FOLLOWING: WBC 19.5, RBC 3.84, HGB 11.1, HCT 32.7, GLUCOSE 129, CALCIUM 8.2, MAGNESIUM 1.5, AST 62, ALT 89, ALK PHOS 118, TOTAL PROTEIN 5.9, ALBUMIN 1.7. REPEAT BLOOD CULTURES AND SPUTUM CULTURES REPORT NO GROWTH. A CHEST XRAY WAS OBTAINED AND REVEALED MILD CARDIOMEGALY WITHOUT CONGESTIVE HEART FAILURE. HYPO INFLATION. MINIMAL SUBSEGMENTAL ATELECTASIS LEFT COSTOPHRENIC ANGLE. PATIENT WAS STARTED ON PROCALAMINE YESTERDAY FOR PROTEIN DEFICIENCY. TODAY, WE WILL DISCONTINUE THE LEVAQUIN AND START INVANZ 1GM IV DAILY. WILL CONTINUE TO FOLLOW PATIENT UNTIL DISCHARGE WELL. OTHERWISE, WE WILL CONTINUE WITH CURRENT PLAN OF CARE. WE PLAN TO FOLLOW UP WITH AM LABS AND CONTINUE TO MONTIOR PATIENT. - Past Medical Family Social History Past Med/Fam/Surg Hx: No changes since H&P Allergies: Allergies piroxicam [From Feldene] Allergy (Verified 11/05/17 04:40) - Review of Systems ROS: No change since H&P - Vital Signs and I&O's Vital Signs: Temperature 97.9 F Pulse Rate [Right Brachial] 84 Pulse Rate 80 Respiratory Rate 22 Blood Pressure [Right Arm] 126/66 Blood Pressure 102/57 O2 Sat by Pulse Oximetry 96 Intake and Output: Intake & Output 11/11/17 11/12/17 11/13/17 11/14/17 11:59 11:59 11:59 11:59 Intake Total 4345 4314 4840 2830 Output Total 1900 2550 Balance 2445 4314 2290 2830 - Physical Exam Oriented: Normal Eyes: Normal, Blurred Vision Ear: Normal Nose: Normal Throat: Normal Respiratory: Generalized, Diminished (Bases ) Cardiovascular: Tachycardia : Normal Auscultation: Bowel Sounds: Normal Palpation: Normal Tenderness: RUQ. negative: Rebound, Guarding, Rigidity Skin: Normal Musculoskeletal: Normal Psychiatric: Normal Mood Description: Calm Affect: Normal Speech Pattern: Clear, Appropriate - Laboratory and Diagnostics Result Diagrams: 11/13/17 04:35 11/13/17 04:35 Labs: 11/09/17 21:55 Blood Blood Culture - Final 11/09/17 21:40 Blood Blood Culture - Final 11/11/17 21:08 Sputum - Expectorated Sputum Sputum Culture - Preliminary 11/11/17 21:08 Sputum - Expectorated Sputum - Final 11/05/17 08:37 Blood Blood Culture - Final 11/05/17 08:27 Blood Blood Culture - Final 11/05/17 13:30 Sputum - Expectorated Sputum Sputum Culture - Final 11/05/17 13:30 Sputum - Expectorated Sputum - Final Laboratory WBC 19.5 X10^3/uL (3.6-10.0) H 11/13/17 04:35 RBC 3.84 X10^6/uL (4.7-6.0) L 11/13/17 04:35 Hgb 11.1 g/dL (13.5-18.0) L 11/13/17 04:35 Hct 32.7 % (42.0-54.0) L 11/13/17 04:35 MCV 85.2 fL (80.0-100.0) 11/13/17 04:35 MCH 29.0 pg (27.0-34.0) 11/13/17 04:35 MCHC 34.0 g/dL (33.0-35.0) 11/13/17 04:35 RDW 14.7 % (11.6-16.5) 11/13/17 04:35 Plt Count 277 X10^3/uL (150.0-450.0) 11/13/17 04:35 Plt Count Comment Adequate (ADEQUATE) 11/11/17 05:30 MPV 8.4 fL (7.4-11.0) 11/13/17 04:35 Neut % (Auto) 85.0 % (42.0-75.0) H 11/13/17 04:35 Lymph % (Auto) 6.6 % (21.0-51.0) L 11/13/17 04:35 [place] % (Auto) 7.1 % (0.0-13.0) 11/13/17 04:35 Eos % (Auto) 1.1 % (0.9-2.9) 11/13/17 04:35 Baso % (Auto) 0.2 % (0.2-1.0) 11/13/17 04:35 Neut # (Auto) 16.6 x10^3/uL (2.2-4.8) H 11/13/17 04:35 Lymph # (Auto) 1.3 X10^3/uL (1.3-2.9) 11/13/17 04:35 [place] # (Auto) 1.4 x10^3/uL (0.3-0.8) H 11/13/17 04:35 Eos # (Auto) 0.2 x10^3/uL (0.0-0.2) 11/13/17 04:35 Baso # (Auto) 0.0 X10^3/uL (0.0-0.1) 11/13/17 04:35 Absolute Nucleated RBC 0.1 /100WBC 11/13/17 04:35 Total Counted 100 11/11/17 05:30 Neutrophils % (Manual) 80 % (39-76) H 11/11/17 05:30 Band Neutrophils % 2 % (0-10) 11/11/17 05:30 Lymphocytes % (Manual) 6 % (13-43) L 11/11/17 05:30 Monocytes % (Manual) 11 % (4-9) H 11/11/17 05:30 Eosinophils % (Manual) 1 % (0-6) 11/11/17 05:30 Plt Morphology Comment Normal (NORMAL) 11/11/17 05:30 RBC Morphology Normal (NORMAL) 11/11/17 05:30 APTT 39.0 SECONDS (22.9-36.5) H 11/09/17 05:39 PTT Comment - 11/09/17 05:39 Sodium 138 mmol/L (136-145) 11/13/17 04:35 Corrected Sodium 139 mmol/L (136-145) 11/13/17 04:35 Potassium 3.6 mmol/L (3.5-5.1) 11/13/17 04:35 Chloride 101 mmol/L (98-107) 11/13/17 04:35 Carbon Dioxide 26.5 mmol/L (21-32) 11/13/17 04:35 BUN 15 mg/dL (7-18) 11/13/17 04:35 Creatinine 0.96 mg/dL (0.70-1.30) 11/13/17 04:35 Est GFR (MDRD) Af Amer > 60 (>60) 11/13/17 04:35 Est GFR (MDRD) Non-Af > 60 (>60) 11/13/17 04:35 Glucose 129 mg/dL (65-99) H 11/13/17 04:35 POC Glucose (mg/dL) 111 mg/dL (65-99) H 11/13/17 16:47 Lactic Acid 2.8 mmol/L (0.4-2.0) H 11/06/17 15:04 Calcium 8.2 mg/dL (8.5-10.1) L 11/13/17 04:35 Corrected Calcium 10.0 mg/dL (8.5-10.1) 11/13/17 04:35 Magnesium 1.5 mg/dL (1.7-2.9) L 11/13/17 04:35 Total Bilirubin 0.60 mg/dL (0.2-1.0) 11/13/17 04:35 AST 62 Units/L (15-37) H 11/13/17 04:35 ALT 89 Units/L (12-78) H 11/13/17 04:35 Alkaline Phosphatase 118 Units/L (46-116) H 11/13/17 04:35 C-Reactive Protein 162.00 mg/L (0-3.0) H 11/05/17 08:27 Total Protein 5.9 g/dL (6.4-8.2) L 11/13/17 04:35 Albumin 1.7 g/dL (3.4-5.0) L 11/13/17 04:35 Globulin 4.2 g/dL (2.5-4.5) 11/13/17 04:35 Albumin/Globulin Ratio 0.4 Ratio (1.1-2.1) L 11/13/17 04:35 Triglycerides 239 mg/dL (0-150) H 11/12/17 04:30 Cholesterol 113 mg/dL (0-200) 11/12/17 04:30 LDL Cholesterol, Calc 55 mg/dL (0-100) 11/12/17 04:30 HDL Cholesterol 10 mg/dL (40-60) L 11/12/17 04:30 Cholesterol/HDL Ratio 11.3 (0.0-5.0) H 11/12/17 04:30 Amylase 42 Units/L (25-115) 11/11/17 05:30 Lipase 134 Units/L (73-393) 11/11/17 05:30 Specimen Type Clean catch urine 11/11/17 21:00 Urine Color Yellow (YELLOW) 11/11/17 21:00 Urine Appearance Clear (CLEAR) 11/11/17 21:00 Urine pH 7.0 (5.0 - 8.0) 11/11/17 21:00 Ur Specific [place] 1.010 (1.000-1.030) 11/11/17 21:00 Urine Protein Negative (NEGATIVE) 11/11/17 21:00 Urine Glucose (UA) Negative (NEGATIVE) 11/11/17 21:00 Urine Ketones Negative (NEGATIVE) 11/11/17 21:00 Urine Occult Blood 2+ (NEGATIVE) 11/11/17 21:00 Urine Nitrite Negative (NEGATIVE) 11/11/17 21:00 Urine Bilirubin Negative (NEGATIVE) 11/11/17 21:00 Urine Urobilinogen 1+ (NORMAL) 11/11/17 21:00 Ur Leukocyte Esterase Negative (NEGATIVE) 11/11/17 21:00 Urine RBC 3-5 /HPF (NONE SEEN) 11/11/17 21:00 Urine WBC 0-2 /HPF (NONE SEEN) 11/11/17 21:00 Ur Squamous Epith Cells Rare /HPF (NEGATIVE) 11/11/17 21:00 Amorphous Sediment 2+ /HPF (NEGATIVE) 11/05/17 14:10 Urine Bacteria 1+ /HPF (NEGATIVE) 11/11/17 21:00 Hyaline Casts Few /LPF (NEGATIVE) 11/05/17 14:10 Urine Mucus Moderate /HPF (NEGATIVE) 11/06/17 12:18 Ur Culture Indicated? No/not indicated 11/11/17 21:00 Ur Random Sodium < 50 mmol/L (40-220) 11/06/17 22:31 Urine Creatinine 126.05 mg/dL (40-278) 11/06/17 22:31 Tissue Pathology To follow 11/12/17 17:45 - Plan (1) Acute pancreatitis Status: Acute Qualifiers: Pancreatitis type: unspecified pancreatitis type Acute pancreatitis complication: unspecified Qualified Code(s): K85.90 - Acute pancreatitis without necrosis or infection, unspecified Plan: CONTINUE IV FLUIDS, LEVAQUIN 750MG IV DAILY, FORTAZ 1GM IV Q8H, DEMEROL FOR PAIN CONTROL, ZOFRAN AND PHENERGAN FOR NAUSEA (2) Cholelithiasis Status: Acute Qualifiers: Cholelithiasis location: gallbladder Cholecystitis presence: with cholecystitis Cholecystitis acuity: acute Biliary obstruction: without biliary obstruction Qualified Code(s): K80.00 - Calculus of gallbladder with acute cholecystitis without obstruction Plan: STATUS POST LAP TIARA, CONTINUE TO MONITOR (3) Bronchopneumonia Status: Acute Plan: LEVAQUIN IV, FORTAZ IV, RESPIRATORY TREATMENTS, CONTINUE TO MONITOR (4) Hypertension Status: Acute Qualifiers: Hypertension type: essential hypertension Qualified Code(s): I10 - Essential (primary) hypertension Plan: CONTINUE NORVASC, CONTINUE ZESTORETIC, CONTINUE TO MONITOR
[2017-11-13] MEDS: NORVASC TAB 10 MG PO SCH (20:33)
[2017-11-13] MEDS: TRICOR TAB 48 MG PO SCH (20:33)
[2017-11-14] MEDS: D5 NS 1000 ML 1,000 ML IV SCH (02:00)
[2017-11-14] MEDS: FORTAZ or TAZICEF INJ 1 GM in NS 100 ML IV + SPIKE MINIBAG* 100 ML IV SCH ×2 (05:14→13:10)
[2017-11-14 05:35] LABS: BASOPHILS % (AUTO) 0.3 % (0.2-1.0); EOSINOPHILS # (AUTO) 0.2 x10^3/uL (0.0-0.2); EOSINOPHILS % (AUTO) 1.4 % (0.9-2.9); HEMATOCRIT 32.2 % (42.0-54.0); HEMOGLOBIN 11.1 g/dL (13.5-18.0); LYMPHOCYTES # (AUTO) 1.4 X10^3/uL (1.3-2.9); LYMPHOCYTES % (AUTO) 10.2 % (21.0-51.0); MEAN CORPUSCULAR HEMOGLOBIN 29.1 pg (27.0-34.0); MEAN CORPUSCULAR HGB CONC 34.4 g/dL (33.0-35.0); MEAN CORPUSCULAR VOLUME 84.5 fL (80.0-100.0); MEAN PLATELET VOLUME 8.3 fL (7.4-11.0); MONOCYTES # (AUTO) 1.2 x10^3/uL (0.3-0.8); MONOCYTES % (AUTO) 8.7 % (0.0-13.0); NEUTROPHILS # (AUTO) 10.6 x10^3/uL (2.2-4.8); NEUTROPHILS % (AUTO) 79.4 % (42.0-75.0); PLATELET COUNT 279 X10^3/uL (150.0-450.0); RED BLOOD COUNT 3.82 X10^6/uL (4.7-6.0); RED CELL DISTRIBUTION WIDTH 14.5 % (11.6-16.5); WHITE BLOOD COUNT 13.4 X10^3/uL (3.6-10.0)
[2017-11-14 05:49] LABS: ALANINE AMINOTRANSFERASE 95 Units/L (12-78); ALBUMIN 1.9 g/dL (3.4-5.0); ALKALINE PHOSPHATASE 131 Units/L (46-116); ASPARTATE AMINO TRANSFERASE 58 Units/L (15-37); BLOOD UREA NITROGEN 10 mg/dL (7-18); CALCIUM 8.5 mg/dL (8.5-10.1); CARBON DIOXIDE 30.6 mmol/L (21-32); CHLORIDE 103 mmol/L (98-107); COR CA(FOR HYPOALB) 10.2 mg/dL (8.5-10.1); COR NA(FOR HYPERGLY) 142 mmol/L (136-145); CREATININE 0.85 mg/dL (0.70-1.30); SODIUM 141 mmol/L (136-145); TOTAL PROTEIN 6.2 g/dL (6.4-8.2); eGFR BLACK RACES > 60 (>60); eGFR NON BLACK RACES > 60 (>60)
--- NOTE | 2017-11-14 06:46 | RAD ---
History: Shortness of breath Study: Portable AP chest Comparison: Yesterday Findings: There is very limited inspiration. The left hemidiaphragm is obscured. The heart size is mi ldly enlarged. The right lung is clear. Impression: Very limited inspiration with apparent left basilar subsegmental atelectasis or consolida tion with possible small left pleural effusion Reported By:
[2017-11-14] MEDS: XOPENEX 1.25 MG/3 ML NEBULE NEB SCH ×2 (08:40→12:20)
[2017-11-14] MEDS ORDERED: PLAVIX PO SCH (09:00)
[2017-11-14] MEDS: ZESTORETIC 20/25 MG PO SCH (09:20)
[2017-11-14] MEDS: MUCINEX DM PO SCH (09:20)
[2017-11-14] MEDS: K-DUR TAB 20 MEQ PO SCH (09:21)
[2017-11-14] MEDS: ZYLOPRIM PO SCH (09:21)
[2017-11-14] MEDS: INVANZ INJ 1 GM VIAL 1 GM in NS 100 ML IV + SPIKE MINIBAG* 100 ML IV SCH (09:21)
[2017-11-14] MEDS: MIRALAX POWDER (1 DOSE 17GM) PO SCH (09:21)
[2017-11-14] MEDS: PEPCID 20 MG IV PREMIX* 20 MG/50 ML BAG IV SCH (09:21)
[2017-11-14] MEDS: PERCOCET TAB 5/325 MG PO PRN (13:09)
[2017-11-14 15:40] VITALS: BP 136/70
== END 2017-11-14 16:30 | disposition home or self-care (01) | DRG 438 ==
LOC: ER 04:31 → OBSVTOIN 08:18 → OBS 08:18 → INTOOBSV 08:18 → ICU 11-06 16:25
PROVIDERS: ADMIT Internal Medicine; ATTEND Internal Medicine
PROC: 0FT44ZZ Resection of Gallbladder, Percutaneous Endoscopic Approach (ICD-10-PCS; principal; 2017-11-12 16:00)
DX: K85.80 Other acute pancreatitis without necrosis or infection (principal); K80.00 Calculus of gallbladder with acute cholecystitis without obstruction; J18.0 Bronchopneumonia, unspecified organism; R06.02 Shortness of breath; N30.00 Acute cystitis without hematuria; E86.0 Dehydration; D72.825 Bandemia; R78.71 Abnormal lead level in blood; I10 Essential (primary) hypertension; E11.65 Type 2 diabetes mellitus with hyperglycemia; I25.10 Atherosclerotic heart disease of native coronary artery without angina pectoris; R10.84 Generalized abdominal pain; I51.7 Cardiomegaly
CPT/HCPCS: 36415; 71045; 74018; 74176; 74177; 76705; 80053; 80061; 81001; 82150; 82565; 82570; 83605; 83690; 83735; 84295; 84300; 84520; 85025; 85730; 86140; 87040; 87070; 87205; 93005; 93010; 93306; 93970; 94640; 94760; 96365; 96367; 96374; 96375; 99231; 99283; 99284; A4216; A4222; B5200; S0020; S0028; J0330; J0713; J1335; J1644; J1940; J1956; J2001; J2175; J2250; J2270; J2370; J2405; J2550; J2710; J3010; J3490; J7120; J7620

== ENCOUNTER → 2017-11-23 | Outpatient (CLI) | payer OTHER ==
[2017-11-14 15:40] VITALS: BP 136/70
--- NOTE | 2017-11-23 12:15 | RAD ---
Examination: Chest, PA and lateral views History: Resolving pneumonia follow-up Comparison 11/14/2017 Findings: Continued normal heart size. There is marked interval improvement in aeration of the left l ower lung with only slightly prominent linear markings remaining. There is no evidence for infiltrate , consolidation or pleural fluid. Impression: Marked interval improvement. See above. Reported By:
== END | disposition home or self-care (01) ==
LOC: RAD 11:46
PROVIDERS: ATTEND General Practice
DX: J16.8 Pneumonia due to other specified infectious organisms (principal)
CPT/HCPCS: 71046

== ENCOUNTER 2020-12-12 19:01 | Inpatient (IN) ==
[2020-12-12 19:11] VITALS: BMI 32.5
[2020-12-12] MEDS ORDERED: ZOFRAN INJ 4 MG VIAL IVP ONE (20:10)
[2020-12-12] MEDS ORDERED: DILAUDID INJ IVP ONE (20:10)
[2020-12-12] MEDS ORDERED: NS 1000 ML 1,000 ML IV ONE (20:10)
--- NOTE | 2020-12-12 20:17 | DR.UPM ---
HPI Time Seen Time Seen by Provider: 12/12/20 20:10 PCP Primary Care Physician: JERSEY KURTZ Complaint Chief Complaint Doctors Comments: hx of apncreatitis and DM. n/v x 2 days. worsening epigastric abd pain. Chief Complaint:: STATED THAT HE HAS PANCREATITIS AND THAT HIS KIDNEYS ARE NOT WORKING GOOD BECAUSE HIS URINE IS TURNING BROWN Self Treatment fo Chief Complaint: DRANK GATORADE ZERO X2, HAVE NOT EATEN ANYTHING. ATE CLEAR BROTH YESTERDAY AND DRANK GATORADE Reviewed Nurses Notes Reviewed: Yes Source History Provided: Patient Mode of Arrival Mode of Arrival: Ambulatory Timing Onset of Chief Complaint: 12/11/20 PMH PMH Past Medical History: Yes Past Medical History: Diabetes, Gout and Hypertension Past Medical History Comment: PANCREATITIS Past Surgical History: Yes Surgical History: Cholecystectomy and Ortho Surgery Past Surgical History Comment: SHOULDER, HERNIA, BACK Family History History of Family Medical Conditions: Yes Family Medical History: Cancer, [place], Heart Failure and Hypertension Social History Does patient currently use any type of tobacco product: No Have you used tobacco products in the last 12 months: No Type of Tobacco Use: None Does any household member use tobacco: No Alcohol Use: None Do you use any recreational Drugs:: No Lives With: Spouse Lives Where: Home Infectious screening In the last 2 months have you had wt loss of >10#?: NO Have you had fever, night sweats or hemotysis?: No Have you traveled outside the country in the last 6 months?: No Isolation: Standard ROS Review of Systems Constitutional: See HPI and Malaise Eyes: No Symptoms Reported ENTM: No Symptoms Reported Respiratoy: No Symptoms Reported Cardiovascular: No Symptoms Reported Gastrointestinal/Abdominal: See HPI, Abdominal Pain, Nausea and Food Intolerance Genitourinary: See HPI Neurological: No Symptoms Reported Musculoskeletal: No Symptoms Reported Integumentary: No Symptoms Reported PE Vital Signs Vitals: Temperature 99.5 F Pulse Rate [Left] 78 Pulse Rate 72 Respiratory Rate 20 Blood Pressure [Right Arm] 106/70 Blood Pressure 109/59 O2 Sat by Pulse Oximetry 95 General General Appearance: Alert and In Distress Head Head Exam: Normal Inspection and Normocephalic ENT ENT Exam: Normal Exam Neck Neck Exam: Normal Inspection Chest Chest Inspection: Normal Inspection Respiratory Respiratory Exam: Normal Lung Sounds Bilat Cardiovascular Cardiovascular Exam: Regular Rate and Normal Heart Sounds Abdominal Exam Abdominal Exam: Normal Inspection, Normal Bowel Sounds, Soft and Tenderness; negative Guarding and Rebound Abdominal Tenderness: Diffuse and Moderate Extremities Extremities Exam: Normal Inspection Back Back Exam: Normal Inspection Neurologic Neurological Exam: Alert and Oriented X3 Skin Skin Exam: Warm, Dry and Intact ROR Labs Reviewed Laboratory Results Reviewed?: Yes Result Diagrams: 12/12/20 20:12/12/20 20: Laboratory: WBC 8.9 X10^3/uL (3.6-10.0) 12/12/20 20: RBC 5.10 X10^6/uL (4.7-6.0) 12/12/20 20: Hgb 14.9 g/dL (13.5-18.0) 12/12/20 20: Hct 43.7 % (42.0-54.0) 12/12/20: MCV 85.8 fL (80.0-100.0) 12/12/20: MCH 29.3 pg (27.0-34.0) 12/12/20: MCHC 34.2 g/dL (33.0-35.0) 12/12/20 20: RDW 13.6 % (11.6-16.5) 12/12/20: Plt Count 182 X10^3/uL (150.0-450.0) 12/12/20: MPV 8.8 fL (7.4-11.0) 12/12/20 20: Neut % (Auto) 75.2 % (42.0-75.0) H 12/12/20: Lymph % (Auto) 11.7 % (21.0-51.0) L 12/12/20 20: [place] % (Auto) 11.3 % (0.0-13.0) 12/12/20 20: Eos % (Auto) 1.4 % (0.9-2.9) 12/12/20: Baso % (Auto) 0.4 % (0.2-1.0) 12/12/20 20: Neut # (Auto) 6.7 x10^3/uL (2.2-4.8) H 12/12/20 20: Lymph # (Auto) 1.0 X10^3/uL (1.3-2.9) L 12/12/20 20:27 [place] # (Auto) 1.0 x10^3/uL (0.3-0.8) H 12/12/20 20:27 Eos # (Auto) 0.1 x10^3/uL (0.0-0.2) 12/12/20 20:27 Baso # (Auto) 0.0 X10^3/uL (0.0-0.1) 12/12/20 20:27 Absolute Nucleated RBC 0.1 /100WBC 12/12/20 20:27 Sodium 137 mmol/L (136-145) 12/12/20 20:27 Corrected Sodium 139 mmol/L (136-145) 12/12/20 20:27 Potassium 3.6 mmol/L (3.5-5.1) 12/12/20 20: Chloride 99 mmol/L (98-107) 12/12/20 20: Carbon Dioxide 26.6 mmol/L (21-32) 12/12/20 20: BUN 17 mg/dL (7-18) 12/12/20 20:27 Creatinine 1.43 mg/dL (0.70-1.30) H 12/12/20 20:27 Est GFR (MDRD) Af Amer > 60 (>60) 12/12/20 20: Est GFR (MDRD) Non-Af 54 (>60) L 12/12/20 20: Glucose 179 mg/dL (65-99) H 12/12/20 20: Calcium 9.8 mg/dL (8.5-10.1) 12/12/20 20: Corrected Calcium TNP 12/12/20 20:27 Total Bilirubin 1.40 mg/dL (0.2-1.0) H 12/12/20 20:27 AST 604 Units/L (15-37) H 12/12/20 20:27 ALT 589 Units/L (12-78) H 12/12/20 20:27 Alkaline Phosphatase 92 Units/L (46-116) 12/12/20 20:27 Total Protein 7.9 g/dL (6.4-8.2) 12/12/20 20:27 Albumin 4.0 g/dL (3.4-5.0) 12/12/20 20:27 Globulin 3.9 g/dL (2.5-4.5) 12/12/20 20:27 Albumin/Globulin Ratio 1.0 Ratio (1.1-2.1) L 12/12/20 20:27 Amylase 77 Units/L (25-115) 12/12/20 20: Lipase 718 Units/L (73-393) H 12/12/20 20:27 Specimen Type Clean catch urine 12/12/20 22:25 Urine Color Yellow (YELLOW) 12/12/20 22:25 Urine Appearance Clear (CLEAR) 12/12/20 22:25 Urine pH 7.0 (5.0 - 8.0) 12/12/20 22:25 Ur Specific [place] 1.010 (1.000-1.030) 12/12/20 22:25 Urine Protein 2+ (NEGATIVE) 12/12/20 22:25 Urine Glucose (UA) Negative (NEGATIVE) 12/12/20 22:25 Urine Ketones Negative (NEGATIVE) 12/12/20 22:25 Urine Occult Blood 1+ (NEGATIVE) 12/12/20 22:25 Urine Nitrite Negative (NEGATIVE) 12/12/20 22:25 Urine Bilirubin 1+ (NEGATIVE) 12/12/20 22:25 Urine Urobilinogen 3+ (NORMAL) 12/12/20 22:25 Ur Leukocyte Esterase 1+ (NEGATIVE) 12/12/20 22:25 Opioid Opioid Risk Tool Age (Yaw box if 16-45): No History of Preadolescent Sexual Abuse: No Total: 0 Total Score Risk Category: Low Risk Copyright: Sandeep YEH predicting aberrant behaviors Diagnosis Discharge Problem: Acute pancreatitis, Acute dehydration ADDITIONAL NOTES Additional Notes Additional Notes: admit to dr perez
[2020-12-12] MEDS ORDERED: NS 1000 ML 1,000 ML ONE (20:19)
[2020-12-12] MEDS ORDERED: DILAUDID INJ ONE (20:19)
[2020-12-12] MEDS ORDERED: ZOFRAN INJ 4 MG VIAL ONE (20:19)
[2020-12-12 20:36] LABS: BASOPHILS % (AUTO) 0.4 % (0.2-1.0); EOSINOPHILS # (AUTO) 0.1 x10^3/uL (0.0-0.2); EOSINOPHILS % (AUTO) 1.4 % (0.9-2.9); HEMATOCRIT 43.7 % (42.0-54.0); HEMOGLOBIN 14.9 g/dL (13.5-18.0); LYMPHOCYTES % (AUTO) 11.7 % (21.0-51.0); MEAN CORPUSCULAR HEMOGLOBIN 29.3 pg (27.0-34.0); MEAN CORPUSCULAR HGB CONC 34.2 g/dL (33.0-35.0); MEAN CORPUSCULAR VOLUME 85.8 fL (80.0-100.0); MEAN PLATELET VOLUME 8.8 fL (7.4-11.0); MONOCYTES % (AUTO) 11.3 % (0.0-13.0); NEUTROPHILS # (AUTO) 6.7 x10^3/uL (2.2-4.8); NEUTROPHILS % (AUTO) 75.2 % (42.0-75.0); PLATELET COUNT 182 X10^3/uL (150.0-450.0); RED CELL DISTRIBUTION WIDTH 13.6 % (11.6-16.5); WHITE BLOOD COUNT 8.9 X10^3/uL (3.6-10.0)
[2020-12-12 20:47] LABS: ALANINE AMINOTRANSFERASE 589 Units/L (12-78); ALKALINE PHOSPHATASE 92 Units/L (46-116); AMYLASE 77 Units/L (25-115); ASPARTATE AMINO TRANSFERASE 604 Units/L (15-37); BLOOD UREA NITROGEN 17 mg/dL (7-18); CALCIUM 9.8 mg/dL (8.5-10.1); CARBON DIOXIDE 26.6 mmol/L (21-32); CHLORIDE 99 mmol/L (98-107); COR NA(FOR HYPERGLY) 139 mmol/L (136-145); CREATININE 1.43 mg/dL (0.70-1.30); LIPASE 718 Units/L (73-393); SODIUM 137 mmol/L (136-145); TOTAL PROTEIN 7.9 g/dL (6.4-8.2); eGFR NON BLACK RACES 54 (>60)
--- NOTE | 2020-12-12 21:20 | CT ---
EXAM: CT ABDOMEN AND PELVIS WITHOUT INTRAVENOUS CONTRASTHISTORY: Pain. Pancreatitis.TECHNIQUE: Spiral axial CT images are obtained through the abdomen and pelvis without the administration of intravenous contrast. Additional coronal and sagittal reformatted images are reconstructed.DOSIMETRY: Total DLP 979.3 mGycm; CTDI 17.3 mGyCOMPARISON: CT abdomen and pelvis dated August 25, 2020.FINDINGS:GASTROINTESTINAL TRACT: There is thickened appearance of the distal gastric mucosa and duodenal sweep in keeping with secondary gastroduodenitis. Abundant fecal material is seen within the large bowel loops; nonspecific finding; rule out constipation. Diffuse colonic diverticulosis, especially in the sigmoid region, without CT evidence for acute diverticulitis. No evidence for bowel herniation, bowel obstruction, or colitis. A normal-appearing appendix is seen.GENITOURINARY SYSTEM: There are multiple bilateral innumerable renal medullary nonobstructing renal calculi in keeping with medullary nephrocalcinosis. There is an approximately 1.3 cm exophytic left middle to lower pole renal cyst, and an approximately 1.5 cm exophytic right middle to lower pole renal cyst. The kidneys are otherwise unremarkable. There is no ureteral calculus or stigmata of obstructive uropathy. The urinary bladder is grossly unremarkable for a non-dedicated exam.CT ABDOMEN: There is evidence for acute pancreatitis marked by pancreatic enlargement and peripancreatic streaky inflammatory change (stable appearance). No evidence for pancreatic pseudocyst formation is seen. The liver, spleen, adrenal glands and inferior vena cava are within normal limits for a noncontrast CT scan. There is no intra-abdominal or retroperitoneal lymphadenopathy, free fluid, or free air seen. No abdominal herniation is noted.CT PELVIS: L4-S1: Status post laminectomies and posterior lumbar fusion with metallic hardware in situ. The visualized bony structures are otherwise within normal limits. No pelvic sidewall or inguinal lymphadenopathy is seen. No inguinal herniation is noted. No free fluid or free air is seen.LUNG BASES: The lung bases are clear.IMPRESSION:1. Evidence for acute pancreatitis (stable appearance); no pancreatic pseudocyst or peripancreatic phlegmon or drainable fluid collection seen.2. Thickened appearance of distal gastric mucosa and duodenal sweep in keeping with secondary gastroduodenitis (new finding).3. No evidence for acute appendicitis, bowel herniation/obstruction, or colitis seen.4. Diverticulosis coli, especially the descending colon and sigmoid colon, without evidence for diverticulitis.5. Abundant fecal material is seen within the large bowel loops; nonspecific finding; rule out constipation.6. Multiple bilateral nonobstructing renal calculi; no ureteral stone or obstructive uropathy seen bilaterally.7. No free fluid, free air, mass lesions, or lymphadenopathy seen.Electronically signed by: Milind Matthews (December 12, 2020 21:17:12)
[2020-12-12 22:36] LABS: BILIRUBIN,URINE 1+ (NEGATIVE); BLOOD/HEMOGLOBIN,URINE 1+ (NEGATIVE); GLUCOSE, URINE NEGATIVE (NEGATIVE); KETONES,URINE NEGATIVE (NEGATIVE); LEUKOCYTE ESTERASE ,URINE 1+ (NEGATIVE); NITRITES,URINE NEGATIVE (NEGATIVE); PROTEIN,URINE 2+ (NEGATIVE); UROBILINOGEN,URINE 3+ (NORMAL)
[2020-12-12 22:44] LABS: APPEARANCE,URINE CLEAR (CLEAR); COLOR,URINE YELLOW (YELLOW)
[2020-12-13] MEDS ORDERED: DILAUDID INJ IVP PRN (00:04)
[2020-12-13] MEDS ORDERED: HumuLIN R SUBCUT PRN (02:43)
[2020-12-13] MEDS: NS 1000 ML 1,000 ML IV SCH ×3 (04:14→18:25)
[2020-12-13 04:35] LABS: BASOPHILS % (AUTO) 0.4 % (0.2-1.0); EOSINOPHILS # (AUTO) 0.1 x10^3/uL (0.0-0.2); EOSINOPHILS % (AUTO) 1.9 % (0.9-2.9); HEMATOCRIT 38.3 % (42.0-54.0); HEMOGLOBIN 12.9 g/dL (13.5-18.0); LYMPHOCYTES % (AUTO) 12.3 % (21.0-51.0); MEAN CORPUSCULAR HEMOGLOBIN 29.1 pg (27.0-34.0); MEAN CORPUSCULAR HGB CONC 33.6 g/dL (33.0-35.0); MEAN CORPUSCULAR VOLUME 86.6 fL (80.0-100.0); MEAN PLATELET VOLUME 8.8 fL (7.4-11.0); MONOCYTES # (AUTO) 0.9 x10^3/uL (0.3-0.8); MONOCYTES % (AUTO) 11.1 % (0.0-13.0); NEUTROPHILS # (AUTO) 5.8 x10^3/uL (2.2-4.8); NEUTROPHILS % (AUTO) 74.3 % (42.0-75.0); PLATELET COUNT 143 X10^3/uL (150.0-450.0); RED BLOOD COUNT 4.42 X10^6/uL (4.7-6.0); RED CELL DISTRIBUTION WIDTH 13.8 % (11.6-16.5); WHITE BLOOD COUNT 7.8 X10^3/uL (3.6-10.0)
[2020-12-13 04:46] LABS: ALANINE AMINOTRANSFERASE 483 Units/L (12-78); ALBUMIN 3.5 g/dL (3.4-5.0); ALKALINE PHOSPHATASE 74 Units/L (46-116); ASPARTATE AMINO TRANSFERASE 356 Units/L (15-37); BLOOD UREA NITROGEN 23 mg/dL (7-18); CALCIUM 9.4 mg/dL (8.5-10.1); CARBON DIOXIDE 27.5 mmol/L (21-32); CHLORIDE 101 mmol/L (98-107); COR NA(FOR HYPERGLY) 139 mmol/L (136-145); SODIUM 138 mmol/L (136-145); TOTAL PROTEIN 6.8 g/dL (6.4-8.2); eGFR NON BLACK RACES 31 (>60)
[2020-12-13] MEDS ORDERED: NS 1000 ML 1,000 ML IV ONE ×4 (07:08→15:06)
[2020-12-13] MEDS ORDERED: GLUCOPHAGE ONE ×2 (10:46→21:02)
[2020-12-13] MEDS: PLAVIX PO SCH (10:47)
[2020-12-13] MEDS: GLUCOPHAGE PO SCH ×2 (10:47→21:00)
[2020-12-13] MEDS: LOVENOX INJ 40 MG SYR SC SCH (10:49)
[2020-12-13] MEDS ORDERED: DEMEROL INJ ONE ×2 (11:29→17:04)
[2020-12-13] MEDS: DEMEROL INJ IVP PRN ×3 (11:35→17:11)
--- NOTE | 2020-12-13 12:11 | US ---
Ultrasound abdomenIndication: Pancreatitis.TECHNIQUEDynamic grayscale and color Doppler imaging through the abdomen. Spectral analysis performed.FINDINGSLiver measures 16.5 centimeters in length shows increased echotexture suggesting steatosis. Portal vein flow is patent. Hepatic artery and attic vein flow is patent. Gallbladder is absent surgically. Common bile duct measures 9 millimeters. Right kidney is 11.8 centimeters. Left kidney is 11.3 centimeters. Spleen is 12.6 centimeters. IVC is patent. Aorta cannot be seen.IMPRESSION:1. Prominent common bile duct with possible intrahepatic biliary dilatation. To better evaluate for obstructing lesion, correlate clinically and follow-up with MRCP or CT as needed. ERCP would be helpful as well of signs of obstruction are present. Underlying neoplasia not excluded2. Hepatic steatosis suggested.Electronically signed by: CLARNECE SCHULTZ (December 13, 2020 12:09:37)
--- NOTE | 2020-12-13 16:39 | MRI ---
EXAM: MRI ABDOMEN (MRCP) WITHOUT CONTRASTHISTORY: Recurrent pancreatitis.TECHNIQUE: Multiplanar (axial, sagittal, and coronal) T1 and T2-weighted images are obtained through the abdomen without administration of gadolinium. Two-dimensional and three-dimensional MIP images were reformatted.COMPARISON: CT abdomen pelvis dated December 12, 2020. Abdominal ultrasound dated December 13, 2020.FINDINGS:MRCP: The patient is status post cholecystectomy. No gross intrahepatic biliary ductal dilatation is seen. There is mild extrahepatic biliary ductal dilatation (CBD measures 1.12 cm, without discernible obstructing stone or pancreatic head mass lesion, in keeping with postcholecystectomy state. No evidence for choledocholithiasis is seen.PANCREAS: The pancreas appears normal in size and signal intensity. There is borderline pancreatic ductal dilatation (3.1 mm). No intraductal stone is seen. No pancreatic mass or pseudocyst formation is seen. No peripancreatic phlegmon or abnormal fluid collection is seen.MRI ABDOMEN: There are multiple bilateral small scattered renal cortical cysts; largest cyst seen in the right lower pole kidney measuring 2.3 cm. No evidence for obstructive uropathy is seen. The liver, spleen, adrenal glands, aorta, and inferior vena cava are within normal limits. There is no intra-abdominal or retroperitoneal lymphadenopathy, free fluid, or free air seen. No abdominal herniation is noted. There are no stigmata of bowel obstruction, colitis or diverticulitis.IMPRESSION:1. Status post cholecystectomy.2. Mild extrahepatic biliary ductal dilatation (CBD measures 1.12 cm, without discernible obstructing stone or pancreatic head mass lesion, in keeping with postcholecystectomy state.3. No evidence for choledocholithiasis is seen.Electronically signed by: Milind Matthews (December 13, 2020 16:37:57)
[2020-12-13] MEDS: ZOFRAN INJ 4 MG VIAL IVP PRN (17:34)
[2020-12-13] MEDS ORDERED: SNACK - Diabetic Appropriate PO SCH (20:00)
[2020-12-14] MEDS: DEMEROL INJ IVP PRN ×2 (00:10→05:38)
[2020-12-14] MEDS: ZOFRAN INJ 4 MG VIAL IVP PRN (00:10)
[2020-12-14] MEDS: NS 1000 ML 1,000 ML IV SCH ×2 (04:30→10:38)
[2020-12-14 04:55] LABS: BASOPHILS % (AUTO) 0.5 % (0.2-1.0); EOSINOPHILS # (AUTO) 0.1 x10^3/uL (0.0-0.2); EOSINOPHILS % (AUTO) 2.6 % (0.9-2.9); HEMATOCRIT 35.4 % (42.0-54.0); HEMOGLOBIN 11.6 g/dL (13.5-18.0); LYMPHOCYTES # (AUTO) 1.4 X10^3/uL (1.3-2.9); LYMPHOCYTES % (AUTO) 29.6 % (21.0-51.0); MEAN CORPUSCULAR HEMOGLOBIN 28.9 pg (27.0-34.0); MEAN CORPUSCULAR HGB CONC 32.9 g/dL (33.0-35.0); MEAN CORPUSCULAR VOLUME 87.8 fL (80.0-100.0); MEAN PLATELET VOLUME 8.8 fL (7.4-11.0); MONOCYTES # (AUTO) 0.5 x10^3/uL (0.3-0.8); MONOCYTES % (AUTO) 10.1 % (0.0-13.0); NEUTROPHILS # (AUTO) 2.7 x10^3/uL (2.2-4.8); NEUTROPHILS % (AUTO) 57.2 % (42.0-75.0); PLATELET COUNT 127 X10^3/uL (150.0-450.0); RED BLOOD COUNT 4.03 X10^6/uL (4.7-6.0); WHITE BLOOD COUNT 4.8 X10^3/uL (3.6-10.0)
[2020-12-14 05:04] LABS: ALANINE AMINOTRANSFERASE 282 Units/L (12-78); ALBUMIN 3.1 g/dL (3.4-5.0); ALKALINE PHOSPHATASE 59 Units/L (46-116); AMYLASE 27 Units/L (25-115); ASPARTATE AMINO TRANSFERASE 92 Units/L (15-37); BLOOD UREA NITROGEN 15 mg/dL (7-18); CALCIUM 8.8 mg/dL (8.5-10.1); CARBON DIOXIDE 27.7 mmol/L (21-32); CHLORIDE 106 mmol/L (98-107); COR CA(FOR HYPOALB) 9.5 mg/dL (8.5-10.1); LIPASE 125 Units/L (73-393); SODIUM 142 mmol/L (136-145); TOTAL PROTEIN 6.2 g/dL (6.4-8.2); eGFR NON BLACK RACES > 60 (>60)
[2020-12-14] MEDS ORDERED: ZYLOPRIM PO SCH (09:00)
[2020-12-14] MEDS ORDERED: GLUCOPHAGE XR 24-HR PO SCH (09:00)
[2020-12-14] MEDS ORDERED: ACTOS PO SCH (09:00)
[2020-12-14] MEDS ORDERED: MOBIC TAB 15 MG PO SCH (09:00)
[2020-12-14] MEDS ORDERED: ZESTRIL TAB 10 MG PO SCH (09:00)
[2020-12-14] MEDS: PLAVIX PO SCH (09:13)
[2020-12-14] MEDS: LOVENOX INJ 40 MG SYR SC SCH (09:14)
[2020-12-14 13:41] VITALS: BP 148/70
== END 2020-12-14 14:37 | disposition home or self-care (01) | DRG 438 ==
LOC: ICU 19:01 → ER 19:01 → OBSVTOIN 12-13 01:15 → ICU 12-13 01:40
PROVIDERS: ADMIT Obstetrics & Gynecology Obstetrics; ATTEND Obstetrics & Gynecology Obstetrics
DX: E86.0 Dehydration; K85.80 Other acute pancreatitis without necrosis or infection; K59.09 Other constipation; E11.65 Type 2 diabetes mellitus with hyperglycemia; R74.01 Elevation of levels of liver transaminase levels; I25.10 Atherosclerotic heart disease of native coronary artery without angina pectoris; K76.89 Other specified diseases of liver; Z86.16 Personal history of COVID-19; I10 Essential (primary) hypertension; U07.1 COVID-19; R10.13 Epigastric pain